=== PATIENT | female | born 1955 | race Caucasian/White ===

== ENCOUNTER 2023-03-23 13:29 | Emergency (ER) | payer OTHER ==
--- OUTSIDE RECORDS SUMMARY | 2023-03-23 14:03 | XMS REPORT | Continuity of Care Document ---
:1955 Author Organization [facility] t Address [address] [place] [address]. [address] [place] [address] Care Team Providers Name Role Phone Cinthya Mcneal Attending Clinician Unavailable Thad Morejon Admitting Clinician Unavailable Payers Payer Name Policy Type Policy Number Effective Date Expiration Date S ource Problems This patient has no known problems. Allergies, Adverse Reactions, Alerts Allergy Allergy Status Severity Reaction(s) Onset Inactive Treating Comm ents Source Name Type Date Date Clinician aspirin DA Active SV SWELLING 2020-10 [facility] 12-03 [place] 00:00: d 00 [facility] ibuprofe DA Active SV SWELLING 2020-10 [facility] n 12-03 [place] 00:00: d 00 [facility] Medications This patient has no known medications. Procedures This patient has no known procedures. Encounters Start End Encounter Admission Attending Care Care Encounter Source Date/Time Date/Time Type Type Clinicians Facility Department ID 2021-10-06 2021-10-06 Inpatient SIDDHARTHA Mcneal [facility] DAYS [id number] [facility] 06:36:00 06:36:00 Cinthya Hall [facility] Results Test Description Test Time Test Comments Results Result Comments Source COVID 19 INHOUSE AG 2021-10-02 12:51:00 Test Item Value Reference Range Interpretation Comme nts COVID 19 INHOUSE AG (test code = NEGATIVE Negative Per metal tank builder, negative [id number]) results should be treated aspresumptive a nd, if inconsistent wi th clinical signs andsymptoms or necessary for patient managem ent, should betested with a n alternative molecular assay . Negative resultsdo not p reclude SARS-CoV-2 infection and s hould not be usedas the sole basis for patient management deci sions. Negative results should be considered in the context of apatient's recent exposures, hist ory, presence of clinicalsigns a nd symptoms consistent with COVID-19. BASIC METABOLIC [id number] 12:27:00 Test Item Value Reference Range Interpretation Comments SODIUM (test code = NA) 138 mmol/L 134-147 N POTASSIUM (test code = 4.0 mmol/L 3.4-5.0 N K) CHLORIDE (test code = 108 mmol/L 100-108 N CL) CARBON DIOXIDE (test 24 mmol/L 21-32 N code = CO2) ANION GAP (test code = 6.0 GAP calc 4.0-15.0 N GAP) GLUCOSE (test code = 91 MG/DL 70-110 N GLU) BLOOD UREA NITROGEN 15 MG/DL 7-18 N (test code = BUN) GLOMERULAR FILTRATION >=60 max estimate >60 RATE (test code = GFR) estGFR CREATININE (test code = 0.9 MG/DL 0.6-1.0 N CREAT) CALCIUM (test code = CA) 9.1 MG/DL 8.5-10.1 N CBC W/AUTO [id number] 12:17:00 Test Item Value Reference Range Interpretation Comments WHITE BLOOD CELL (test code = 4.6 K/mm3 3.5-11.0 N WBC) RED BLOOD CELL (test code = 4.89 M/mm3 4.70-6.10 N RBC) HEMOGLOBIN (test code = HGB) 13.8 G/DL 10.4-14.9 N HEMATOCRIT (test code = HCT) 43.0 % 31.5-44.1 N MEAN CELL VOLUME (test code = 87.9 Fl 84.5-98.6 N MCV) MEAN CELL HGB (test code = MCH) 28.2 pg 27.0-34.2 N MEAN CELL HGB CONCETRATION 32.1 G/DL 31.5-34.0 N (test code = MCHC) RED CELL DISTRIBUTION WIDTH 13.3 SD 11.5-14.5 N (test code = RDW) PLATELET COUNT (test code = 210 K/mm3 150-450 N PLT) MEAN PLATELET VOLUME (test code 10.30 fL 7.0-10.5 N = MPV) NEUTROPHIL % (test code = NT%) 61.8 % 40-76 N IMMATURE GRANULOCYTE % (test 0.4 % 0.0-5.0 N code = IG%) LYMPHOCYTE % (test code = LY%) 19.8 % 20.5-51.1 L MONOCYTE % (test code = MO%) 14.2 % 1.7-9.3 H EOSINOPHIL % (test code = EO%) 3.4 % 0.0-6.0 N BASOPHIL % (test code = BA%) 0.4 % 0.0-2.0 N NUCLEATED RBC % (test code = 0.0 /100WBC% 0.0-1.0 N NRBC%) NEUTROPHIL # (test code = NT#) 2.9 K/mm3 1.8-7.6 N IMMATURE GRANULOCYTE # (test 0.02 x10 3/uL 0.00-0.03 N code = IG#) LYMPHOCYTE # (test code = LY#) 0.9 K/mm3 0.6-3.2 N MONOCYTE # (test code = MO#) 0.7 K/mm3 0.3-1.1 N EOSINOPHIL # (test code = EO#) 0.2 K/mm3 0.0-0.4 N BASOPHIL # (test code = BA#) 0.0 K/mm3 0.0-0.1 N NUCLEATED RBC # (test code = 0.0 K/mm3 0.0-0.1 N NRBC#) MANUAL DIFF REQUIRED (test code NO DIFF/SCN CRITERIA = MDIFF) - XR CHEST 2 [id number] 12:12:00 [facility] 1955 Sex: F Name: DAKOTAH JARRELL [facility] : 1955 Age/S: 66 / F [facility] Unit #: [id number] Loc:[place] [address] Phys: Cinthya Mcneal MD Acct: [id number] Dis Date: Status: PRE SDC PHONE #: [phone] Exam Date: 10/02/2021 1150 FAX #: Reason: PREOP EXAMS: CPT: [id number] XR CHEST 2 V 32834 Fluoro Time: DAP (Gy m2): Air Kerma (mGy): EXAMINATION: Frontal and lateral chest radiographs INDICATION: PREOP, J34.2 COMPARISON: None LOCATION: S17 FINDINGS: Clear lungs. No pleural effusion or pneumothorax. Cardiac silhouette is normal in size. IMPRESSION: No acute abnormality identified. El ectronically Signed by Tabitha Thompson on 10/02/2021 at 1212 Reported and signed by: Tho Thompson M.D. CC: Thad BROOKS; Cinthya Mcneal MD PAGE 1 Signed Report Name: DAKOTAH PAYNE [facility] : 1955 Age/S: 66 / F [id number] [facility] Unit #: [id number] Loc: [place] [address] Phys: Cinthya Mcneal MD Acct: [id number] Dis Date: Status: PRE [facility] PHONE #: [phone] Exam Date: 10/02/2021 1150 FAX #: Reason: PREOP EXAMS: CPT: [id number] XR CHEST 2 V 03156 Fluoro Time: DAP (Gy m2): Air Kerma (mGy): <Continued> Technologist: Payton Mijares RT(R)(MR) Trnscb Date/Time: 10/02/2021 (1212) [place] Orig Print D/T: S: 10/02/2021 (1215) PAGE 2 Signed Report Notes Date/Time Note Provider Source 2021-10-06 10:46:00-00:00 [facility] ([facility] Full Op Note REPORT#:[id number] REPORT STATUS: Signed DATE:10/06/21 TIME:104 PATIENT: DAKOTAH PAYNE UNIT #: [id number] ROOM/BED: : 55 AGE: 66 SEX: F ATTEND: Tyler Mcnael MD ADM AUTHOR: Cinthya Mcneal MD * ALL edits or amendments must be made on the el [employer]/computer document * Operative Report Start date: 10/06/21 Start time: 909 Pre-procedure diagnosis: septal deviation, nasal obstruction Post-procedure diagnosis: same Procedures performed: Septoplasty Technique/Procedure: The patient was brought to the operating room an d placed under general anesthesia via endotracheal tube. The head of be d was turned 90 degrees. The nasal hairs were trimmed with scissors and the s petum injected with local anesthetic. The nasa cavity was packed to Afrin soaked plegets. The head was draped in a standard fashion for nasal surgery. After removal of the plegets , the nasal cavity was inspected with headlight and nasal speculum revealing severe left cartilagino us and bony septal deviation with in ability to view the left middle turbinat e. The inferior turbinates appeared enlarged despite topical decongestant. A right hemitransfixion incision was made with a 15 blade scapel and a Sarita elevator was used to elevate the bilateral mucosa flaps, isolating the cartilage and bone. Leaving a 1.5cm ca udal and cranial L strut, the cartilage was incised with a Gem and 1.5cm frag ment of cartilage with addital 1cm of attached bone was removed. The rongeur was used to refine the septum near the posterior, superior aspect and along the maxillary crest. A rasp was used to smooth the bone along the left maxillary crest. This result ed in significant improvement of the septal deviation. Afr in soak plegets were applied for several minutes to aid in hemostasis. The previously removed cartil age was inspected and bony fragments were removed. The cartilage was judici ously shaved and re-shaped to the flat, thin disc of about 1.5cm diameter and 2mm thickness. The plegets were removal and counts confirmed correct. The cartil age was then replaced between the mucosal flaps. The hemit ransfixion incision was closed in a running fashion using plain gut suture on a P3 needle. A second suture was manipulated to straighten the P3 to mimic a mansoor needle and th en used to approximate the septal flaps in a quilting like suture. A freer was used to medialize the middle turbinates bilaterally to help open airfl ow through the nose. Surgical plan for turbinate reduction and nasal valve remodeling was aborted due to equipment malfunction. No Villela splints or na jocelyne packing was felt neccessary.The nasopharynx was suctioned and the patient returned to care of anesthesia for awakening and extubation in the perating room which proceeded without difficulty. Primary Surgeon: Cinthya Mcneal Co-surgeon: none Type Copy Examiner(s): none Anesthesia: general anesthesia Operative findings: severe cartilage and bone left septal deviation Complications: none Estimated blood loss in ml's: 10ml Specimens removed/altered: septal bone/cartilage , no pathology Implant(s): none at [address] [facility] [[email or web address]] #: [id number] END OF REPORT 2021-10-02 11:47:00-00:00 [id number] [address] PATIENT NAME: DAKOTAH PAYNE ADMIT DATE: 10/06/21 ACCOUNT NO: [id number] ROOM NO: AGE: 66 REPORT TYPE: eELECTROCARDIOGRAM SEX: F ADMITTING PHYSICIAN: ATTENDING PHYSICIAN: Cinthya Mcneal MD Order: [id number] Test Reason : PREOP Test Date/Time Stamp: WedOct 02 2021 11:47:09 Blood Pressure : / mmHG Vent. Rate : 072 BPM Atrial Rate : 072 BPM P-R Int : 168 ms QRS Dur : 138 ms QT Int : 434 ms P-R-T Axes : 054 -69 051 degree s QTc Int : 475 ms Sinus rhythm with occasional premature ventricul ar complexes Right bundle branch block Left anterior fascicular block Bifascicular block Confirmed by MD Javier, Amir ([id number]) on 2:50:09 PM Referred By: Cinthya Mcneal Confirmed by:Jennifer Herrera MD at 1450 PATIENT NAME: DAKOTAH PAYNE 271
[2023-03-23 14:21] LABS: Absolute Lymphocytes (CBC) 0.8 K/uL (0.7-4.9); Hematocrit 40.2 % (36.0-45.0); Lymphocytes % 11.1 % (15.3-44.8); MCV 85.2 fL (80-100); RBC Red Blood Cell Count 4.72 M/uL (3.86-4.86)
[2023-03-23 14:25] LABS: Protime INR 1.09
[2023-03-23 14:44] LABS: Albumin 3.5 g/dL (3.4-5.0); Bilirubin Direct 0.1 mg/dL (0-0.2); Bilirubin Indirect, Calculated 0.4 mg/dL (0.2-0.8); Bilirubin Total 0.5 mg/dL (0.2-1.0); Potassium 4.1 mEq/L (3.5-5.1); Protein, Total 7.6 g/dL (6.4-8.2); Troponin High Sensitivity 8.3 pg/mL (<58.9)
--- NOTE | 2023-03-23 14:58 | RAD REPORT ---
EXAM DESCRIPTION: RAD - Chest Single View - 03/23/2023 2:52 pm CLINICAL HISTORY: CHEST PAIN Chest pain. COMPARISON: Chest Pa And Lat (2 Views) dated 11/27/2021; Chest Pa And Lat (2 Views) dated 01/04/2020; Chest Pa And Lat (2 Views) dated 06/02/2019; Chest Pa And Lat (2 Views) dated 10/17/2017 FINDINGS: Portable technique limits examination quality. [id number] bilateral interstitial lung opacities. The heart is moderately enlarged. No displace d fractures. IMPRESSION: Mild CHF.
--- NOTE | 2023-03-23 15:36 | RAD REPORT ---
EXAM DESCRIPTION: CT - Chest For Pe Angio - 03/23/2023 3:25 pm CLINICAL HISTORY: Chest pain. CHEST PAIN COMPARISON: Thorax Wo Con dated 06/05/2022 TECHNIQUE: CT angiogram of the pulmonary arteries was performed with MIP. All CT scans are performed using dose optimization technique as appropriate and may include automated exposure control or mA/KV adjustment according to patient size. FINDINGS: No evidence of pulmonary thromboembolism. No acute aortic finding demonstrated. Prominent diffuse emphysema. No significant pericardial or pleural fluid. No concerning bony finding. IMPRESSION: No evidence of pulmonary thromboembolism. Prominent diffuse COPD.
--- NOTE | 2023-03-23 16:07 | ER ---
Nurse's Notes [facility] Name: Ivet May Age: 67 yrs Sex: Female : 1955 Arrival Date: 03/23/2023 Time: 13:29 Bed 12 Private MD: Diagnosis: Chest pain, unspecified;COPD/ Chronic obstructive pulmonary disease, unspecified Presentation: 03/23 13:36 Chief complaint: Patient states: chest pain radiating around to back that began this aa5 morning. Pt reports baseline cough and baseline SOB. Coronavirus screen: At this time, the client does not indicate any symptoms associated with coronavirus-19. Ebola Screen: Patient denies travel to an Ebola-affected area in the 21 days before illness onset. Initial Sepsis Screen: Does the patient meet any 2 criteria? No. Patient's initial sepsis screen is negative. Does the patient have a suspected source of infection? No. Patient's initial sepsis screen is negative. Risk Assessment: Do you want to hurt yourself or someone else? Patient reports no desire to harm self or others. Onset of symptoms was March 23, 2023. 13:36 Acuity: PETE 3 aa5 13:36 Method Of Arrival: Ambulatory aa5 Historical: - Allergies: 13:37 Aspirin; aa5 13:37 Ibuprofen; aa5 - PMHx: 13:37 COPD; Hypertension; aa5 - Immunization history:: Adult Immunizations unknown. - Social history:: Smoking status: Reported history of juuling and/or vaping. - Family history:: not pertinent. - Hospitalizations: : No recent hospitalization is reported. Screenin:[facility] ED Fall Risk Assessment (Adult) History of falling in the last 3 months, mb9 including since admission No falls in past 3 months (0 pts) Confusion or Disorientation No (0 pts) Intoxicated or Sedated No (0 pts) Impaired Gait No (0 pts) Mobility Assist Device Used No (0 pt) Altered Elimination No (0 pt) Score/Fall Risk Level 0 - 2 = Low Risk Oriented to surroundings, Maintained a safe environment, Educated pt \T\ family on fall prevention, incl call for assistance when getting out of bed. Abuse screen: Denies threats or abuse. Nutritional screening: No deficits noted. Tuberculosis screening: No symptoms or risk factors identified. Assessment: 14:19 General: Appears in no apparent distress. Behavior is calm, cooperative. Pain: mb9 Complains of pain in chest Pain radiates to back Pain currently is 5 out of 10 on a pain scale. Quality of pain is described as throbbing, Pain began suddenly, Is intermittent. Neuro: Braxton Agitation-Sedation Scale (RASS): 0 - Alert and Calm Level of Consciousness is awake, alert, obeys commands, Oriented to person, place, time, situation, Appropriate for age. Cardiovascular: Reports chest pain, shortness of breath, Heart tones S1 S2 present Patient's skin is warm and dry. Respiratory: Reports shortness of breath at rest on exertion Airway is patent Respiratory effort is even, unlabored, Respiratory pattern is regular, symmetrical, Breath sounds are clear bilaterally. GI: Abdomen is round non-distended, Bowel sounds present X 4 quads. Abd is soft and non tender X 4 quads. Patient currently denies nausea. GI:. : No signs and/or symptoms were reported regarding the genitourinary system. Derm: Skin is pink, warm \T\ dry. Musculoskeletal: Range of motion: intact in all extremities. 16:22 Reassessment: Patient and/or family updated on plan of care and expected duration. Pain mb9 level reassessed. Patient is alert, oriented x 3, equal unlabored respirations, skin warm/dry/pink. Patient states feeling better. Patient states symptoms have improved. Vital Signs: 13:36 BP 176 / 97; Pulse 83; Resp 16 S; Temp 98(TE); Pulse Ox 97% on R/A; Weight 96.62 kg aa5 (R); Height 5 ft. 7 in. (R); 14:20 BP 131 / 100; Pulse 74; Resp 14; Pulse Ox 94% on R/A; mb9 16:22 BP 132 / 89; Pulse 78; Resp 18; Pulse Ox 99% ; mb9 13:36 Body Mass Index 33.36 (96.62 kg, 170.18 cm) aa5 ED Course: 13:32 Patient arrived in ED. rg4 13:36 Arm band placed on. aa5 13:37 Kristian Caro MD is Attending Physician. rn 13:37 Triage completed. aa5 13:46 Radiology exam delayed due to lab results not completed at this time. (BUN/Creatinine) jg10 IV insertion attempt and/or patient not having appropriate IV at this time. 13:54 Kimberly Ferguson, RN is Primary Nurse. mb9 14:11 Initial lab(s) drawn, by me, sent to lab. Inserted saline lock: 22 gauge in left tm3 antecubital area, using aseptic technique. 14:18 Basic Metabolic Panel Sent. mb9 14:18 CBC with Diff Sent. mb9 14:18 LFT's Sent. mb9 14:18 NT PRO-BNP Sent. mb9 14:18 PT-INR Sent. mb9 14:18 Troponin HS Sent. mb9 14:19 Lipase Sent. mb9 14:20 Placed in gown. Bed in low position. Call light in reach. Side rails up X 1. Client mb9 placed on continuous cardiac and pulse oximetry monitoring. NIBP monitoring applied. library monitor on. Door closed. Noise minimized. Warm blanket given. 14:20 No provider procedures requiring assistance completed. Patient maintains SpO2 mb9 saturation greater than 95% on room air. 14:53 XRAY Chest (1 view) In Process Unspecified. EDMS 15:27 CT Chest For PE Angio In Process Unspecified. EDMS 15:28 Inserted saline lock: 20 gauge in right antecubital area, using aseptic technique. mb9 16:06 Jesús Lantigua MD is Referral Physician. rn 16:22 IV discontinued, intact, bleeding controlled, No redness/swelling at site. Pressure mb9 dressing applied. Administered Medications: 16:12 Drug: predniSONE PO 60 mg Route: PO; mb9 Medication: 14:21 VIS not applicable for this client. mb9 Outcome: 16:07 Discharge ordered by . rn 16:22 Discharged to home ambulatory. mb9 16:22 Condition: stable 16:22 Discharge instructions given to patient, Instructed on discharge instructions, follow up and referral plans. Demonstrated understanding of instructions, follow-up care, medications, Prescriptions given X 1. 16:23 Patient left the ED. mb9 Signatures: Dispatcher [employer] EDMS Christiano Ryan3 Kristian Caro MD MD rn Calderon, Audri, RN RN salvador5 Micki Mon4 Isabel Pappas jg10 Kimberly Ferguson, RN RN mb9
--- NOTE | 2023-03-23 16:07 | EDPHYS ---
Physician Documentation [facility] Name: Ivet May Age: 67 yrs Sex: Female : 1955 Arrival Date: 03/23/2023 Time: 13:29 Bed 12 Private MD: ED Physician Kristian Caro HPI: 03/23 14:21 This 67 yrs old Female presents to ER via Ambulatory with complaints of Chest Pain. rn 14:21 The patient or guardian reports chest pain that is located primarily in the substernal rn area. Onset: this morning. The pain radiates to back. Associated signs and symptoms: Pertinent positives: cough, lower extremity swelling, Pertinent negatives: abdominal pain, near syncope, syncope, vomiting. The chest pain is described as sharp. Duration: The patient or guardian reports multiple episodes, that are intermittent. Modifying factors: The symptoms are alleviated by nothing. the symptoms are aggravated by deep breath. Severity of pain: At its worst the pain was moderate in the emergency department the pain is unchanged. The patient has not experienced similar symptoms in the past. The patient has not recently seen a physician. Historical: - Allergies: 13:37 Aspirin; aa5 13:37 Ibuprofen; aa5 - PMHx: 13:37 COPD; Hypertension; aa5 - Immunization history:: Adult Immunizations unknown. - Social history:: Smoking status: Reported history of juuling and/or vaping. - Family history:: not pertinent. - Hospitalizations: : No recent hospitalization is reported. ROS: 14:21 Constitutional: Negative for fever, chills, and weight loss, Eyes: Negative for injury, rn pain, redness, and discharge, Neck: Negative for injury, pain, and swelling, Cardiovascular: +chest pain Respiratory: + cough, neg for sob Abdomen/GI: Negative for abdominal pain, nausea, vomiting, diarrhea, and constipation, Back: Negative for injury MS/Extremity: Negative for injury and deformity, Skin: Negative for injury, rash, and discoloration, Neuro: Negative for headache, weakness, numbness, tingling, and seizure. Exam: 14:21 Constitutional: This is a well developed, well nourished patient who is awake, alert rn Head/Face: Normocephalic, atraumatic. Cardiovascular: Regular rate, irregular rhythm. No pulse deficits. Respiratory: No increased work of breathing, no retractions or nasal flaring. Abdomen/GI: Soft, non-tender Skin: Warm, dry MS/ Extremity: Pulses equal, no cyanosis. Neuro: Awake and alert, GCS 15 14:54 ECG was reviewed by the Attending Physician. rn Vital Signs: 13:36 BP 176 / 97; Pulse 83; Resp 16 S; Temp 98(TE); Pulse Ox 97% on R/A; Weight 96.62 kg aa5 (R); Height 5 ft. 7 in. (R); 14:20 BP 131 / 100; Pulse 74; Resp 14; Pulse Ox 94% on R/A; mb9 16:22 BP 132 / 89; Pulse 78; Resp 18; Pulse Ox 99% ; mb9 13:36 Body Mass Index 33.36 (96.62 kg, 170.18 cm) aa5 MDM: 13:37 Patient medically screened. rn 16:04 Differential diagnosis: acute myocardial infarction, acute pericarditis, anxiety, chest rn wall pain, costochondritis, esophagitis, gastroesophageal reflux disease (GERD), peptic ulcer disease, pleurisy, pneumonia, pneumothorax, pulmonary embolus, stable angina, thoracic aortic disection. Data reviewed: vital signs, nurses notes, lab test result(s), EKG, radiologic studies, CT scan, plain films, and as a result, I will discharge patient. Counseling: I had a detailed discussion with the patient and/or guardian regarding: the historical points, exam findings, and any diagnostic results supporting the discharge/admit diagnosis, lab results, radiology results, the need for outpatient follow up, to return to the emergency department if symptoms worsen or persist or if there are any questions or concerns that arise at home. Response to treatment: the patient's symptoms have mildly improved after treatment, and as a result, I will discharge patient. Special discussion: I discussed with the patient/guardian in detail that at this point there is no indication for admission to the hospital. It is understood, however, that if the symptoms persist or worsen the patient needs to return immediately for re-evaluation. Based on the history and exam findings, there is no indication for further emergent testing or inpatient evaluation. I discussed with the patient/guardian the need to see the primary care provider for further evaluation of the symptoms. I discussed with the patient/guardian the need to see the veterans services specialist for further evaluation of the symptoms. ED course: CT PE neg for acute findings, labs unremarkable, trop neg, imaging consistent with moderate to severe emphysema/COPD, sees Dr. Lantigua, recommended cessation of vaping/smoking, and will dc home with pcp and pulm f/u with return precautions.. 03/23 13:41 Order name: Basic Metabolic Panel; Complete Time: 14:47 rn 03/23 13:41 Order name: CBC with Diff; Complete Time: 14:47 rn 03/23 13:41 Order name: LFT's; Complete Time: 14:47 rn 03/23 13:41 Order name: NT PRO-BNP; Complete Time: 14:47 rn 03/23 13:41 Order name: PT-INR; Complete Time: 14:47 rn 03/23 13:41 Order name: Troponin HS; Complete Time: 14:47 rn 03/23 13:41 Order name: Lipase; Complete Time: 14:47 rn 03/23 13:41 Order name: XRAY Chest (1 view); Complete Time: 15:43 rn 03/23 13:42 Order name: CT Chest For PE Angio; Complete Time: 15:43 rn 03/23 13:41 Order name: EKG; Complete Time: 13:41 rn 03/23 13:41 Order name: Cardiac monitoring; Complete Time: 13:54 rn 03/23 13:41 Order name: EKG - Nurse/Tech; Complete Time: 13:47 rn 03/23 13:41 Order name: IV Saline Lock; Complete Time: 14:18 rn 03/23 13:41 Order name: Labs collected and sent; Complete Time: 14:18 rn 03/23 13:41 Order name: O2 Per Protocol; Complete Time: 13:54 rn 03/23 13:41 Order name: O2 Sat Monitoring; Complete Time: 13:54 rn EC:54 Rate is 87 beats/min. Rhythm is regular. Left axis deviation noted. QRS is positive in rn lead I and negative in lead aVF. NV interval is normal. QRS interval is prolonged at 136 msec. QT interval is normal. No Q waves. T waves are Normal. No ST changes noted. Clinical impression: NSR w/ Non-specific ST/T Changes. Interpreted by me. Reviewed by me. Administered Medications: 16:12 Drug: predniSONE PO 60 mg Route: PO; mb9 Disposition Summary: 03/23/23 16:07 Discharge Ordered Location: Home rn Problem: new rn Symptoms: have improved rn Condition: Stable rn Diagnosis - Chest pain, unspecified rn - COPD/ Chronic obstructive pulmonary disease, unspecified rn Followup: rn - With: Jesús Lantigua MD - When: As needed - Reason: Recheck today's complaints, Re-evaluation by your physician Discharge Instructions: - Discharge Summary Sheet rn - Nonspecific Chest Pain, Adult rn - Steps to Quit Smoking rn Forms: - Medication Reconciliation Form rn - Thank You Letter rn - Antibiotic rn quality - Prescription Opioid Use rn Prescriptions: - Prednisone 20 mg Oral Tablet - take 3 tablets by ORAL route once daily for 5 days; 15 tablet; Refills: 0, rn Product Selection Permitted Signatures: Dispatcher [employer] Kristian Pollack MD MD rn Calderon, Audri RN RN aa5 Kimberly Ferguson, RN RN mb9
[2023-03-23] MEDS ORDERED: predniSONE 20 MG TAB ONE (16:19)
[2023-03-23 16:52] VITALS: TEMP 98
[2023-03-23 16:54] VITALS: BP 132/89; O2SAT 99
--- NOTE | 2023-03-24 07:16 | EKG ---
Test Date: 2023-03-23 Test Time: 13:48:36 Crm Developer: ROBYN MEASUREMENT RESULTS: Intervals: Rate: 87 NJ: 156 QRSD: 136 QT: 420 QTc: 505 [place]: P: 53 NJ: 156 QRS: -69 T: 38 INTERPRETIVE STATEMENTS: Sinus rhythm with occasional premature ventricular complexes Right bundle branch block Left anterior fascicular block Bifascicular block Abnormal ECG Compared to ECG 10/17/2017 16:37:59 Ventricular premature complex(es) now present Left anterior fascicular block now present Bifascicular block now present Electronically Signed On 03-24-23 07:14:05 CDT by Dmitriy Thrasher
== END 2023-03-23 16:23 | disposition home or self-care (01) ==
LOC: ER 13:29
DX: J44.9 Chronic obstructive pulmonary disease, unspecified (principal); I10 Essential (primary) hypertension; Z88.6 Allergy status to analgesic agent
CPT/HCPCS: 93005; 85025; 80048; 36415; 85610; 80076; 84484; 83690; 83880; 71275; 71045; 99285; Q9967; J7512

== ENCOUNTER 2023-09-27 18:23 | Emergency (ER) | payer OTHER ==
--- OUTSIDE RECORDS SUMMARY | 2023-09-27 18:27 | XMS REPORT | Continuity of Care Document ---
Author Name Unknown Address [address] [facility] [address] [place] [address] [facility] thconnect Address [address] [address] [place] [address] Care Team Providers Care Blind Escort Name Role Phone [email or web address]_Kamirellayala_S Attending Clinician Cinthya Waggoner Attending Clinician Unavail able MELISSA_GCBZW_Kamirellayala_S Admitting Clinician Thad Young Admitting Clinician Unavailable Payers Payer Name Policy Type Policy Number Effective Date Expirati on Date Source Allergies, Adverse Reactions, Alerts Allergy Name Allergy Type Status Severity Reaction(s) Onset Date Inactive Date Treating Clinician Comments Source aspirin DA Active SV SWELLING 2020-10 00:00: 00 [facility] ibuprofe n DA Active SV SWELLING 2020-10 00:00: 00 [facility] Encounters Start Date/Time End Date/Time Encounter Type Admission Type Attending Clinicians Care Facility Care Department Encounter ID Source 2023-08-15 00:00:00 2023-08-15 00:00:00 Outpatient GC_GCBZW_Ka diyala_S PRIV PRIV [id number] [facility] 2021-10-06 06:36:00 2021-10-06 06:36:00 Inpatient Cinthya Arteaga [facility] [id number] [facility] Results Test Description Test Time Test Comments Results Result Co mments Source BASIC METABOLIC [id number] 12:27:00* Test Item Value Reference Range Interpretation Comme nts SODIUM (test code = NA) 138 mmol/L 134-147 N POTASSIUM (test code = K) 4.0 mmol/L 3.4-5.0 N CHLORIDE (test code = CL) 108 mmol/L 100-108 N CARBON DIOXIDE (test code = CO2) 24 mmol/L 21-32 N ANION GAP (test code = GAP) 6.0 GAP calc 4.0-15.0 N GLUCOSE (test code = GLU) 91 MG/DL 70-110 N BLOOD UREA NITROGEN (test code = BUN) 15 MG/DL 7-18 N GLOMERULAR FILTRATION RATE (test code = GFR) >=60 max estimate estGFR >60 CREATININE (test code = CREAT) 0.9 MG/DL 0.6-1.0 N CALCIUM (test code = CA) 9.1 MG/DL 8.5-10.1 N CBC W/AUTO [id number] 12:17:00* Test Item Value Reference Range Interpretation Comme nts WHITE BLOOD CELL (test code = WBC) 4.6 K/mm3 3.5-11.0 N RED BLOOD CELL (test code = RBC) 4.89 M/mm3 4.70-6.10 N HEMOGLOBIN (test code = HGB) 13.8 G/DL 10.4-14.9 N HEMATOCRIT (test code = HCT) 43.0 % 31.5-44.1 N MEAN CELL VOLUME (test code = MCV) 87.9 Fl 84.5-98.6 N MEAN CELL HGB (test code = MCH) 28.2 pg 27.0-34.2 N MEAN CELL HGB CONCETRATION (test code = MCHC) 32.1 G/DL 31.5-34.0 N RED CELL DISTRIBUTION WIDTH (test code = RDW) 13.3 SD 11.5-14.5 N PLATELET COUNT (test code = PLT) 210 K/mm3 150-450 N MEAN PLATELET VOLUME (test c ode = MPV) 10.30 fL 7.0-10.5 N NEUTROPHIL % (test code = NT%) 61.8 % 40-76 N IMMATURE GRANULOCYTE % (test code = IG%) 0.4 % 0.0-5.0 N LYMPHOCYTE % (test code = LY%) 19.8 % 20.5-51.1 L MONOCYTE % (test code = MO%) 14.2 % 1.7-9.3 H EOSINOPHIL % (test code = EO%) 3.4 % 0.0-6.0 N BASOPHIL % (test code = BA%) 0.4 % 0.0-2.0 N NUCLEATED RBC % (test code = NRBC%) 0.0 /100WBC% 0.0-1.0 N NEUTROPHIL # (test code = NT#) 2.9 K/mm3 1.8-7.6 N IMMATURE GRANULOCYTE # (test code = IG#) 0.02 x10 3/uL 0.00-0.03 N LYMPHOCYTE # (test code = LY#) 0.9 K/mm3 0.6-3.2 N MONOCYTE # (test code = MO#) 0.7 K/mm3 0.3-1.1 N EOSINOPHIL # (test code = EO#) 0.2 K/mm3 0.0-0.4 N BASOPHIL # (test code = BA#) 0.0 K/mm3 0.0-0.1 N NUCLEATED RBC # (test code = NRBC#) 0.0 K/mm3 0.0-0.1 N MANUAL DIFF REQUIRED (test c ode = MDIFF) NO DIFF/SCN CRITERIA - XR CHEST 2 [id number] 12:12:00 [facility] 1955 Sex: F Name: DAKOTAH PAYNE [facility] : 1955 Age/S: 66 / F [id number] Unit #: [id number] Loc: [place] [address] Phys: Cinthya Mcneal MD Acct: [id number] Dis Date: Status: PRE SDC PHONE #: [phone] Exam Date: 10/02/2021 1150 FAX #: Reason: PREOP EXAMS: CPT: [id number] XR CHEST 2 V 46888 Fluoro Time: DAP (Gy m2): Air Kerma (mGy): EXAMINATION: Frontal and lateral chest radiographs INDICATION: PREOP, J34.2 COMPARISON: None LOCATION: S17 FINDINGS: Clear lungs. No pleural effusion or pneumothorax. Cardiac silhouette is normal in size. IMPRESSION: No acute abnormality identified. at 1212 Reported and signedby: Tho Thompson M.D. CC: Thad BROOKS; Cinthya Mcneal MD PAGE 1 Signed Report Name: DAKOTAH PAYNE [facility] : 1955 Age/S: 66 / F [id number] Unit #: [id number] Loc: [place] [address] Phys: Cinthya Mcneal MD Acct: [id number] Dis Date: Status: PRE SDC PHONE #: [phone] Exam Date: 10/02/2021 1150 FAX #: Reason: PREOP EXAMS: CPT: [id number] XR CHEST 2 V 88472 Fluoro Time: DAP (Gy m2): Air Kerma (mGy): <Continued> Technologist: Payton Mijares, RT(R)(MR) Trnscb Date/Time: 10/02/2021 (1212) tKIM Orig Print D/T: S: 10/02/2021 (1215) PAGE 2 Signed Report Notes Date/Time Note Provider Source 2021-10-06 10:46:00 [id number] 20T10:46:00 [facility] Op NoteREPORT#:[id number] REPORT STATUS: SignedDATE:10/06/21 TIME:1046 PATIENT: DAKOTAH PAYNE UNIT #: [id number]#: [id number] ROOM/BED:: 55 AGE: 66 SEX: F ATTEND: Cinthya Mcneal MDADM AUTHOR: Cinthya Mcneal MD * ALL edits or amendments must be made on the electronic/computer document * Operative ReportStart date: 10/06/21art time: 909Pre-procedure diagnosis:septal deviation, nasal obstructionPost-procedure diagnosis:sameProcedures performed:SeptoplastyTechnique/Procedure:The patient was brought to the operating room and placed under general anesthesia via endotracheal tube. The head of bed was turned 90 degrees. The nasal hairs were trimmed with scissors and the spetum injected with local anesthetic. The nasa cavity was packed to Afrin soaked plegets. The head was draped in a standard fashion for nasal surgery.After removal of the plegets, the nasal cavity was inspected with headlight and nasal speculum revealing severe left cartilaginous and bony septal deviation with in ability to view the left middle turbinate. The inferior turbinates appeared enlarged despite topical decongestant. A right hemitransfixion incision was made with a 15 blade scapel and a Sarita elevator was used to elevate the bilateral mucosa flaps, isolating the cartilageand bone. Leaving a 1.5cm caudal and cranial L strut, the cartilage was incisedwith a Sarita and 1.5cm fragment of cartilage with addital 1cm of attached bone was removed. The rongeur was used to refine the septum near the posterior, superior aspect and along the maxillary crest. A rasp was used to smooth the bone along the left maxillary crest. This resulted in significant improvement of the septal deviation. Afrin soak plegets were applied for several minutes toaid in hemostasis. The previously removed cartilage was inspected and bony fragments were removed. The cartilage was judiciously shaved and re-shaped to the flat, thin disc of about 1.5cm diameter and 2mm thickness. The plegets wereremoval and counts confirmed correct. The cartilage was then replaced between the mucosal flaps. The hemitransfixion incision was closed in a running fashion using plain gut suture on a P3 needle. A second suture was manipulated to straighten the P3 to mimic a mansoor needle and then used to approximate the septal flaps in a quilting like suture. A freer was used to medialize the middle turbinates bilaterally to help open airflow through the nose.Surgical plan for turbinate reduction and nasal valve remodeling was aborted dueto equipment malfunction. No Villela splints or nasal packing was felt neccessary.The nasopharynx was suctioned and the patient returned to care of anesthesia for awakening and extubation in the operating room which proceeded without difficulty.Primary Surgeon: Marcellus Mcnealsurgeon:noneAssistant(s): noneAnesthesia: general anesthesiaOperative findings:severe cartilage and bone left septal deviationComplications: noneEstimated blood loss in ml's: 10mlSpecimens removed/altered: septal bone/cartilage, no pathologyImplant(s): none at [address] [facility] #: [id number] OF REPORT OPOperative [id number]:46:00L.[id number] ilable for patient [id number]:07:23 [facility] 2021-10-02 11:47:00 [id number] [facility] [id number] [place] [address] PATIENT NAME: DAKOTAH PAYNE ADMIT DATE: 10/06/21ACCOUNT NO: [id number] ROOM NO: AGE: 66 REPORT TYPE: eELECTROCARDIOGRAM SEX: F ADMITTING PHYSICIAN: ATTENDING PHYSICIAN: Cinthya Mcneal MD Order:[id number] Reason : PREOP Test Date/Time Stamp:WedOct 02 2021 11:47:09Blood Pressure : / mmHGVent. Rate : 072 BPM Atrial Rate : 072 BPM P-R Int : 168 ms QRS Dur : 138 ms QT Int : 434 ms P-R-T Axes : 054 -69 051 degrees QTc Int : 475 ms Sinus rhythm with occasional premature ventricular complexesRight bundle branch blockLeft anterior fascicular block Bifascicular block Confirmed by MD Javier, Amir ([id number]) on 11/03/2021 2:50:09 PM Referred By: Cinthya Mcneal Confirmed by:Jennifer Herrera MD at 1450 PATIENT NAME: DAKOTAH PAYNE .[id number] AVAvailable for patient [id number]:52:08 [facility]
[2023-09-27] MEDS ORDERED: NA CHLORIDE 0.9% 2,000 ML ONE (18:42)
[2023-09-27 18:53] LABS: Absolute Lymphocytes (CBC) 1.8 K/uL (0.7-4.9); Hematocrit 44.7 % (36.0-45.0); MCV 88.4 fL (80-100); Platelets 314 thou/uL (152-406); RBC Red Blood Cell Count 5.06 M/uL (3.86-4.86)
[2023-09-27 19:04] LABS: Protime INR 1.07
[2023-09-27 19:33] LABS: ALT/SGPT 220 U/L (13-56); AST/SGOT 299 U/L (15-37); Albumin 3.5 g/dL (3.4-5.0); Alkaline Phosphatase 167 U/L (45-117); BUN Blood Urea Nitrogen 31 mg/dL (7-18); Bicarbonate 20 mEq/L (21-32); Bilirubin Total 2.2 mg/dL (0.2-1.0); Glomerular Filtration Rate 40 ml/min (=/>90); Glucose Level 154 mg/dL (74-106); Potassium 3.7 mEq/L (3.5-5.1); Protein, Total 8.2 g/dL (6.4-8.2); Sodium Level 138 mEq/L (136-145)
[2023-09-27] MEDS ORDERED: NA CHLORIDE 0.9% 1,000 ML ONE (20:17)
--- NOTE | 2023-09-27 20:30 | RAD REPORT ---
EXAM DESCRIPTION: US - Abdomen Exam Limited - 09/27/2023 8:06 pm CLINICAL HISTORY: Abdominal pain. COMPARISON: June 2023 FINDINGS: Multiple gallstones. Gallbladder wall mildly thickened. Common bile duct 7 millimeters IMPRESSION: Cholelithiasis Mild gallbladder wall thickening consistent with cholecystitis Mild dilatation of the common bile duct
[2023-09-27 20:40] LABS: Lipase > 5000 U/L (13-75)
[2023-09-27] MEDS ORDERED: NA CHLORIDE 0.9% 100 ML ONE (20:40)
[2023-09-27] MEDS ORDERED: PIPERACIL/TAZO 3.375 GM VIAL IV ONE (20:40)
--- NOTE | 2023-09-27 20:42 | RAD REPORT ---
EXAM DESCRIPTION: CT - Abdomen Pelvis W Contrast - 09/27/2023 8:25 pm CLINICAL HISTORY: Abdominal pain COMPARISON: 2021 TECHNIQUE: Computed axial tomography of the abdomen pelvis was obtained. 100 cc Isovue-300 was admin istered intravenously. Oral contrast was not requested which limits evaluation of bowel and appendix All CT scans are performed using dose optimization technique as appropriate and may include automated exposure control or mA/KV adjustment according to patient size. FINDINGS: Multiple gallstones. Gallbladder wall mildly thickened. Mild stranding within the adjacent . Common bile duct mildly dilated. Small hepatic cysts. Spleen, pancreas, adrenals and left kidney unremarkable. Right renal cyst. Hysterectomy. No adnexal mass. No evidence of diverticulitis Cystocele A small hiatal hernia IMPRESSION: Cholelithiasis. Mild gallbladder wall thickening and stranding within the adjacent fat i ndicative of cholecystitis Mild dilatation of the common bile duct. Magnetic resonance cholangiogram may be helpful for further evaluation
--- NOTE | 2023-09-27 20:44 | RAD REPORT ---
EXAM DESCRIPTION: Cm Single View09/27/2023 7:00 pm CLINICAL HISTORY: Chest pain COMPARISON: March 2023 FINDINGS: The lungs appear clear of acute infiltrate. The heart is normal size IMPRESSION: No acute abnormality is displayed
[2023-09-27 20:57] LABS: Blood Morphology Comment NOT SEEN (NOT SEEN); Platelet Estimate ADEQ; White Blood Cell Scan OK (OK)
[2023-09-27] MEDS ORDERED: METOCLOPRAMIDE 10 MG/2mL INJ ONE (21:20)
[2023-09-27] MEDS ORDERED: D5.45NS W/KCL 20MEQ 1,000 ML IV ONE (21:21)
[2023-09-27] MEDS ORDERED: HYDROMORPHONE HCL 1 MG/ML INJ ONE (21:21)
--- NOTE | 2023-09-27 21:22 | EDPHYS ---
Physician Documentation [facility] Name: Ivet May Age: 68 yrs Sex: Female : 1955 Arrival Date: 09/27/2023 Time: 18:23 Bed 7 Private MD: ED Physician Chetan Isabel HPI: 09/27 18:54 This 68 yrs old Female presents to ER via EMS with complaints of Nausea/Vomiting, rn Abdominal Pain. 18:54 The patient presents to the emergency department with nausea, vomiting, abdominal pain. rn Onset: The symptoms/episode began/occurred today. Possible causes: unknown. The symptoms are aggravated by nothing. The symptoms are alleviated by nothing. Severity of symptoms: At their worst the symptoms were moderate in the emergency department the symptoms are unchanged. The patient has not experienced similar symptoms in the past. Patient reports started having stomach issues today, reports vomiting, nonbloody, associated with abdominal pain diffuse. Reports constipation. No blood in stool recently. No fever. No known sick contacts. Reports history of COPD but no new cough. Denies fever at home.. Historical: - Allergies: 18:45 Aspirin; iw 18:45 Ibuprofen; iw - PMHx: 18:45 COPD; Hypertension; iw - Immunization history:: Adult Immunizations up to date. - Family history:: not pertinent. - Social history:: Smoking status: Patient denies any tobacco usage or history of. Patient/guardian denies using alcohol, street drugs, IV drugs. - Hospitalizations: : No recent hospitalization is reported. ROS: 18:54 Constitutional: Negative for fever, chills, and weight loss, Cardiovascular: Negative rn for chest pain, palpitations, and edema, Respiratory: Negative for shortness of breath, cough, wheezing, and pleuritic chest pain, Abdomen/GI: Positive for abdominal pain and nausea MS/Extremity: Negative for injury and deformity, Skin: Negative for injury, rash, and discoloration, Neuro: Positive for generalized weakness Exam: 18:54 Constitutional: This is a well developed, well nourished patient who is awake, alert, rn and in no acute distress. Cardiovascular: Regular rate and rhythm. No pulse deficits. Respiratory: No increased work of breathing, no retractions or nasal flaring. Abdomen/GI: Soft, tenderness mid abdomen and left lower quadrant. No peritoneal signs MS/ Extremity: Pulses equal, no cyanosis. Neuro: Awake and alert, GCS 15 23:11 ECG was reviewed by the Attending Physician. EKG reveals 2007, normal sinus rhythm with sp4 sinus arrhythmia at a rate of 76, right bundle branch block, otherwise normal EKG Vital Signs: 18:40 Weight 97.52 kg (R); iw 18:44 BP 70 / 47; Pulse 69; Resp 16; Pulse Ox 90% on 4 lpm NC; iw 18:55 BP 84 / 60; Pulse 73; Pulse Ox 95% on 4 lpm NC; iw 19:00 BP 95 / 76; Pulse 76; Resp 17 S; Pulse Ox 96% on 2 lpm NC; jw7 19:41 BP 114 / 72; Pulse 80; rn 20:00 BP 116 / 49; Pulse 77; Resp 21 S; Pulse Ox 99% on 2 lpm NC; jw7 21:00 BP 123 / 72; Pulse 84; Resp 18 S; Pulse Ox 94% on 2 lpm NC; jw7 21:40 BP 102 / 65; Pulse 86; Resp 18; Pulse Ox 95% on 2 lpm NC; jw7 22:00 BP 106 / 64; Pulse 85; Resp 21 S; Pulse Ox 94% on 2 lpm NC; jw7 23:00 BP 115 / 72; Pulse 74; Resp 19 S; Pulse Ox 97% on 2 lpm NC; jw7 09/28 00:03 BP 119 / 72; Pulse 73; Resp 21 S; Pulse Ox 96% on 2 lpm NC; jw7 Procedures: 09/27 22:44 Central Line: the site was prepped with in sterile fashion, Chlorhexidine, a triple sp4 lumen catheter was inserted, in the right internal jugular vein, in 1 attempts. placement was verified, by CXR, by blood return, Ultrasound-guided central line, the site was dressed with Tegaderm, using sterile technique, the patient tolerated the procedure, well, Right internal jugular triple-lumen CVL was placed with ultrasound guidance no complications. MDM: 18:25 Patient medically screened. rn 21:05 Differential diagnosis: Nonspecific abd pain, gastritis, cholecystitis, pancreatitis, sp4 appendicitis, diverticulitis, viral gastroenteritis, gastroenteritis. Data reviewed: vital signs, nurses notes, EMS record, lab test result(s), EKG, radiologic studies, CT scan, plain films, ultrasound. Consideration of Admission/Observation Patient was admitted/placed on observation. Escalation of care including admission/observation considered. ED course: EXAM DESCRIPTION: Cm Single View09/27/2023 7:00 pm CLINICAL HISTORY: Chest pain COMPARISON: March 2023 FINDINGS: The lungs appear clear of acute infiltrate. The heart is normal size IMPRESSION: No acute abnormality is displayed. ED course: CT - EXAM DESCRIPTION: US - Abdomen Exam Limited - 09/27/2023 8:06 pm CLINICAL HISTORY: Abdominal pain. COMPARISON: June 2023 FINDINGS: Multiple gallstones. Gallbladder wall mildly thickened. Common bile duct 7 millimeters IMPRESSION: Cholelithiasis Mild gallbladder wall thickening consistent with cholecystitis Mild dilatation of the common bile duct. ED course: CT - FINDINGS: Multiple gallstones. Gallbladder wall mildly thickened. Mild stranding within the adjacent. Common bile duct mildly dilated. Small hepatic cysts. Spleen, pancreas, adrenals and left kidney unremarkable. Right renal cyst. Hysterectomy. No adnexal mass. No evidence of diverticulitis Cystocele A small hiatal hernia IMPRESSION: Cholelithiasis. Mild gallbladder wall thickening and stranding within the adjacent fat indicative of cholecystitis Mild dilatation of the common bile duct. Magnetic resonance cholangiogram may be helpful for further evaluation . 09/27 18:26 Order name: CBC with Diff; Complete Time: 21:29 09/27 18:26 Order name: CMP; Complete Time: 20:46 09/27 18:26 Order name: Lipase; Complete Time: 20:46 09/27 18:26 Order name: Blood Culture Adult (2) 09/27 18:26 Order name: Lactate w/ 2H reflex if indic.; Complete Time: 19:49 18:26 Order name: Protime (+inr); Complete Time: 19:36 09/27 18:26 Order name: Ptt, Activated; Complete Time: 19:36 09/27 20:58 Order name: CBC Smear Scan; Complete Time: 21:29 EDVT 09/27 22:47 Order name: Lactate Sepsis 2 HR Follow-up; Complete Time: 23:10 EDVT 09/27 18:26 Order name: CT Abd/Pelvis - IV Contrast Only; Complete Time: 20:46 09/27 18:26 Order name: US Abdomen Limited; Complete Time: 20:46 09/27 18:26 Order name: Chest Single View XRAY; Complete Time: 20:46 rn 09/27 22:24 Order name: Chest Single View XRAY sp4 09/27 18:26 Order name: EKG; Complete Time: 18:35 rn 09/27 18:26 Order name: IV Saline Lock; Complete Time: 18:47 rn 09/27 18:26 Order name: Labs collected and sent; Complete Time: 18:47 rn 09/27 18:26 Order name: Accucheck; Complete Time: 20:18 rn 09/27 18:26 Order name: Cardiac monitoring; Complete Time: 19:15 rn 09/27 18:26 Order name: EKG - Nurse/Tech; Complete Time: 20:18 rn 09/27 18:26 Order name: IV Saline Lock - Large Bore; Complete Time: 19:15 rn 09/27 18:26 Order name: O2 Per Protocol; Complete Time: 18:47 rn 09/27 18:26 Order name: O2 Sat Monitoring; Complete Time: 18:47 rn 09/27 18:26 Order name: Vital Signs; Complete Time: 18:47 rn 09/27 20:35 Order name: Davila; Complete Time: 20:58 sp4 09/27 21:36 Order name: Central Line Kit; Complete Time: 22:10 sp4 EC:11 Rate is 76 beats/min. Rhythm is regular, Normal Sinus Rhythm. QRS Russell is Normal. SD sp4 interval is normal. QRS interval is prolonged. QT interval is normal. No Q waves. T waves are Normal. No ST changes noted. Clinical impression: No evidence of ischemia. Interpreted by me. Reviewed by me. Administered Medications: 18:36 Discontinued: ns 0.9% 1000 ml IV at 1000 ml once rn 18:34 Drug: NS 0.9% IV 1000 ml IV at 1000 ml once Route: IV; Rate: 1000 ml; Site: right iw antecubital; 18:46 Drug: NS 0.9% IV (30 ml/kg) 30 ml/kg IV at bolus once; Sepsis Protocol Route: IV; Rate: iw bolus; Site: right antecubital; 22:10 Follow up: Response: No adverse reaction; IV Status: Completed infusion; IV Intake: jw7 3000ml 20:39 Drug: Piperacillin-Tazobactam IVPB 3.375 grams IVPB once over 60 mins; (mix in NS 100 jw7 mL) Route: IVPB; Infused Over: 60 mins; Site: left antecubital; 22:11 Follow up: Response: No adverse reaction; IV Status: Completed infusion; IV Intake: jw7 100ml 21:22 Drug: HYDROmorphone IVP 1 mg IVP once Route: IVP; Site: right antecubital; jw7 09/28 00:05 Follow up: Response: No adverse reaction; Marked relief of symptoms 7 09/27 21:22 Drug: metoCLOPramide IVP 10 mg IVP once; over 1 to 2 minutes Route: IVP; Site: right jw7 antecubital; 09/28 00:04 Follow up: Response: No adverse reaction; Marked relief of symptoms 7 09/27 21: Drug: D5-1/2 NS with KCl IV 20 mEq/L 1000 ml IV at 125 ml/hr continuous Route: IV; jw7 Rate: 125 ml/hr; Site: right antecubital; 09/28 00:04 Follow up: Response: No adverse reaction; IV Status: Infusion continued upon transfer; jw7 IV Intake: 375ml 09/27 22:55 Drug: Norepinephrine IV 0.1 mcg/kg/min IV at calculated rate See Administration jw7 Instructions; (Standard concentration 4 mg / 250 mL D5W); Recommended max rate 3 mcg/kg/min; Titrate 0.05 mcg/kg/min as often as every 5 minutes to achieve goal (see titration policy); Goal parameter MAP greater than 65 mmHg. Route: IV; Rate: calculated rate; Site: right jugular; 09/28 00:04 Follow up: Response: No adverse reaction; IV Status: Infusion continued upon transfer; jw7 IV Intake: 130ml Disposition Summary: 09/27/23 21:21 Transfer Ordered Notes: Reason: Higher level of care sp4 Condition: Stable sp4 Problem: new sp4 Symptoms: have improved sp4 Transfer Location: [facility]-System(09/27/23 22:45) sp4 Accepting Physician: [facility] [place] kid buffer(09/28/23 00:05) jw7 Diagnosis - Calculus of gallbladder and bile duct with acute cholecystitis with obstruction sp4 - Ascending cholangitis, acute cholecystitis, biliary duct obstruction, acute sp4 pancreatitis, septic shock Forms: - Medication Reconciliation Form sp4 - SBAR form sp4 Signatures: Dispatcher [employer] Humera Shin RN RN iw Kristian Caro MD MD rn Waits, Jodi, RN RN jw7 Chetan Isabel MD MD sp4 Corrections: (The following items were deleted from the chart) 09/27 22:45 21:21 Critical access hospitalist sp4 sp4 22:45 21:21 [facility] sp4 sp4 09/28 00:05 09/27 22:[address] [facility] white kid buffer sp4 jw7
--- NOTE | 2023-09-27 21:22 | ER ---
Nurse's Notes [facility] Name: Ivet May Age: 68 yrs Sex: Female : 1955 Arrival Date: 09/27/2023 Time: 18:23 Bed 7 Private MD: Diagnosis: Calculus of gallbladder and bile duct with acute cholecystitis with obstruction;Ascending cholangitis, acute cholecystitis, biliary duct obstruction, acute pancreatitis, septic shock Presentation: 09/27 18:30 Acuity: PETE 2 iw 18:45 Chief complaint: Spouse and/or significant other states: n/v, abd pain X 4 days, today iw she fell and couldn't get up off the ground. Coronavirus screen: Client presents with at least one sign or symptom that may indicate coronavirus-19. Ebola Screen: Patient negative for fever greater than or equal to 101.5 degrees Fahrenheit, and additional compatible Ebola Virus Disease symptoms Patient denies exposure to infectious person. Patient denies travel to an Ebola-affected area in the 21 days before illness onset. No symptoms or risks identified at this time. Initial Sepsis Screen: Does the patient meet any 2 criteria? Systolic BP < 90 mmHg. Altered Mental Status. Yes Does the patient have a suspected source of infection? Yes: Acute abdominal pain. Risk Assessment: Do you want to hurt yourself or someone else? Patient reports no desire to harm self or others. Onset of symptoms was September 23, 2023. 18:45 Method Of Arrival: EMS: [facility] iw Historical: - Allergies: 18:45 Aspirin; iw 18:45 Ibuprofen; iw - PMHx: 18:45 COPD; Hypertension; iw - Immunization history:: Adult Immunizations up to date. - Family history:: not pertinent. - Social history:: Smoking status: Patient denies any tobacco usage or history of. Patient/guardian denies using alcohol, street drugs, IV drugs. - Hospitalizations: : No recent hospitalization is reported. Screenin:27 [facility] ED Fall Risk Assessment (Adult) History of falling in the last 3 months, jw7 including since admission No falls in past 3 months (0 pts) Score/Fall Risk Level 0 - 2 = Low Risk Oriented to surroundings, Maintained a safe environment. Abuse screen: Denies threats or abuse. Denies injuries from another. Nutritional screening: No deficits noted. Tuberculosis screening: No symptoms or risk factors identified. Assessment: 19:00 General: Appears in no apparent distress. uncomfortable, Behavior is calm, cooperative. jw7 Pain: Complains of pain in abdomen Pain does not radiate. Pain currently is 6 out of 10 on a pain scale. Quality of pain is described as sharp, throbbing, Is continuous. Neuro: Braxton Agitation-Sedation Scale (RASS): 0 - Alert and Calm Level of Consciousness is awake, alert, obeys commands, Oriented to person, place, time, situation. Cardiovascular: Heart tones S1 S2 present Capillary refill < 3 seconds Clubbing of nail beds is absent JVD is absent Patient's skin is warm and dry. Rhythm is sinus rhythm. Respiratory: Airway is patent Trachea midline Respiratory effort is even, unlabored, Respiratory pattern is regular, symmetrical. GI: Abdomen is round distended, Bowel sounds present X 4 quads. : No deficits noted. No signs and/or symptoms were reported regarding the genitourinary system. EENT: No deficits noted. No signs and/or symptoms were reported regarding the EENT system. Derm: No deficits noted. No signs and/or symptoms reported regarding the dermatologic system. Musculoskeletal: No deficits noted. No signs and/or symptoms reported regarding the musculoskeletal system. 20:00 Reassessment: Patient appears in no apparent distress at this time. No changes from jw7 previously documented assessment. Patient and/or family updated on plan of care and expected duration. Pain level reassessed. Patient is alert, oriented x 3, equal unlabored respirations, skin warm/dry/pink. 21:00 Reassessment: Patient appears in no apparent distress at this time. No changes from jw7 previously documented assessment. Patient and/or family updated on plan of care and expected duration. Pain level reassessed. Patient is alert, oriented x 3, equal unlabored respirations, skin warm/dry/pink. 22:06 Reassessment: Patient appears in no apparent distress at this time. Patient and/or jw7 family updated on plan of care and expected duration. Pain level reassessed. Patient is alert, oriented x 3, equal unlabored respirations, skin warm/dry/pink. Patient denies pain at this time. Patient states feeling better. Patient states symptoms have improved. 23:00 Reassessment: Patient appears in no apparent distress at this time. No changes from jw7 previously documented assessment. Patient is alert, oriented x 3, equal unlabored respirations, skin warm/dry/pink. 09/28 00:02 Reassessment: Patient appears in no apparent distress at this time. No changes from jw7 previously documented assessment. Patient is alert, oriented x 3, equal unlabored respirations, skin warm/dry/pink. Vital Signs: 09/27 18:40 Weight 97.52 kg (R); iw 18:44 BP 70 / 47; Pulse 69; Resp 16; Pulse Ox 90% on 4 lpm NC; iw 18:55 BP 84 / 60; Pulse 73; Pulse Ox 95% on 4 lpm NC; iw 19:00 BP 95 / 76; Pulse 76; Resp 17 S; Pulse Ox 96% on 2 lpm NC; jw7 19:41 BP 114 / 72; Pulse 80; rn 20:00 BP 116 / 49; Pulse 77; Resp 21 S; Pulse Ox 99% on 2 lpm NC; jw7 21:00 BP 123 / 72; Pulse 84; Resp 18 S; Pulse Ox 94% on 2 lpm NC; jw7 21:40 BP 102 / 65; Pulse 86; Resp 18; Pulse Ox 95% on 2 lpm NC; jw7 22:00 BP 106 / 64; Pulse 85; Resp 21 S; Pulse Ox 94% on 2 lpm NC; jw7 23:00 BP 115 / 72; Pulse 74; Resp 19 S; Pulse Ox 97% on 2 lpm NC; jw7 09/28 00:03 BP 119 / 72; Pulse 73; Resp 21 S; Pulse Ox 96% on 2 lpm NC; jw7 ED Course: 09/27 18:25 Patient arrived in ED. sb4 18:25 Kristian Caro MD is Attending Physician. rn 18:30 Inserted saline lock: 22 gauge in right antecubital area, using aseptic technique. rs5 Blood collected. 18:30 Missed attempt(s): 20 gauge in right antecubital area. Bleeding controlled, band aid iw applied, catheter tip intact. 18:40 Inserted saline lock: 20 gauge in left antecubital area, using aseptic technique. Blood rs5 collected. 18:43 Humera Olson, RN is Primary Nurse. iw 18:43 Triage completed. iw 18:46 Arm band placed on. iw 19:00 Client placed on continuous cardiac and pulse oximetry monitoring. NIBP monitoring jw7 applied. 19:02 Chest Single View XRAY In Process Unspecified. EDMS 19:27 Patient has correct armband on for positive identification. Bed in low position. Call jw7 light in reach. 20:00 Warm blanket given. jw7 20:08 US Abdomen Limited In Process Unspecified. EDMS 20:27 Attending Physician role handed off by Kristian Caro MD sp4 20:27 Chetan Isabel MD is Attending Physician. sp4 20:27 CT Abd/Pelvis - IV Contrast Only In Process Unspecified. EDMS 20:50 Davila cath inserted, using sterile technique, 18 Fr., by wv, balloon inflated, to jw7 gravity drainage, urine specimen collected. returned cloudy urine. Patient tolerated well. 20:58 Initiated transfer with Kenyatta at [facility]. rv1 21:50 [facility] declined due to capacity. rv1 22:06 Provided Education on: need for transfer and central line consent. jw7 22:10 Initiated transfer with Jamar at [facility]. rv1 22:28 Assisted provider with central line placement. Set up central line tray. Triple lumen lg3 line placed in right internal jugular. Line placed by Chetan Isabel MD Placement verified by blood return, Patient tolerated well. 22:[address] Anna to [facility] 8A Rm 830. rv1 22:50 Chest Single View XRAY In Process Unspecified. EDMS 12 00:03 Patient transferred, IV remains in place. jw7 Administered Medications: 09/27 18:36 Discontinued: ns 0.9% 1000 ml IV at 1000 ml once rn 18:34 Drug: NS 0.9% IV 1000 ml IV at 1000 ml once Route: IV; Rate: 1000 ml; Site: right iw antecubital; 18:46 Drug: NS 0.9% IV (30 ml/kg) 30 ml/kg IV at bolus once; Sepsis Protocol Route: IV; Rate: iw bolus; Site: right antecubital; 22:10 Follow up: Response: No adverse reaction; IV Status: Completed infusion; IV Intake: jw7 3000ml 20:39 Drug: Piperacillin-Tazobactam IVPB 3.375 grams IVPB once over 60 mins; (mix in NS 100 jw7 mL) Route: IVPB; Infused Over: 60 mins; Site: left antecubital; 22:11 Follow up: Response: No adverse reaction; IV Status: Completed infusion; IV Intake: jw7 100ml 21:22 Drug: HYDROmorphone IVP 1 mg IVP once Route: IVP; Site: right antecubital; jw7 09/28 00:05 Follow up: Response: No adverse reaction; Marked relief of symptoms jw7 09/27 21:22 Drug: metoCLOPramide IVP 10 mg IVP once; over 1 to 2 minutes Route: IVP; Site: right jw7 antecubital; 09/28 00:04 Follow up: Response: No adverse reaction; Marked relief of symptoms jw7 09/27 21:22 Drug: D5-1/2 NS with KCl IV 20 mEq/L 1000 ml IV at 125 ml/hr continuous Route: IV; jw7 Rate: 125 ml/hr; Site: right antecubital; 09/28 00:04 Follow up: Response: No adverse reaction; IV Status: Infusion continued upon transfer; jw7 IV Intake: 375ml 09/27 22:55 Drug: Norepinephrine IV 0.1 mcg/kg/min IV at calculated rate See Administration jw7 Instructions; (Standard concentration 4 mg / 250 mL D5W); Recommended max rate 3 mcg/kg/min; Titrate 0.05 mcg/kg/min as often as every 5 minutes to achieve goal (see titration policy); Goal parameter MAP greater than 65 mmHg. Route: IV; Rate: calculated rate; Site: right jugular; 09/28 00:04 Follow up: Response: No adverse reaction; IV Status: Infusion continued upon transfer; jw7 IV Intake: 130ml Medication: 09/27 23:11 VIS not applicable for this client. jw7 Intake: 22:10 IV: 3000ml; Total: 3000ml. jw7 22:11 IV: 100ml; Total: 3100ml. jw7 09/28 00:04 IV: 130ml; Total: 3230ml. jw7 00:04 IV: 375ml; Total: 3605ml. jw7 Outcome: 09/27 21:21 ER care complete, transfer ordered by MD. harrington 09/28 00:03 Transferred by ground EMS to [facility] Condition: stable Instructed on the need for transfer, Demonstrated understanding of instructions, 00:05 Patient left the ED. jw7 Signatures: Dispatcher [employer] Humera Shin, RN RN iw Kristian Caro MD MD rn Able, Lacie, RN RN lg3 Sonali Rascon RN RN jw7 Yanna Bruno, PA-Lise PA-C sb4 Yary Burrows rv1 Dariel Moore RN RN rs5 Chetan Isabel MD MD sp4
[2023-09-27] MEDS ORDERED: LIDOCAINE 1% 20 ML MDV ONE (21:53)
[2023-09-27] MEDS ORDERED: NOREPINEPHRINE BITARTRATE/D5W 4 MG/250 ML BAG IV ONE (23:00)
[2023-09-28 00:53] VITALS: BP 119/72; O2SAT 96
--- NOTE | 2023-09-28 13:41 | EKG ---
Test Date: 2023-09-27 Test Time: 18:53:06 Snuff Box Finisher: POOJA MEASUREMENT RESULTS: Intervals: Rate: 70 MO: 174 QRSD: 140 QT: 468 QTc: 505 [place]: P: 63 MO: 174 QRS: 31 T: 47 INTERPRETIVE STATEMENTS: Normal sinus rhythm with sinus arrhythmia Right bundle branch block Abnormal ECG Compared to ECG 03/23/2023 13:48:36 Ventricular premature complex(es) no longer present Left anterior fascicular block no longer present Bifascicular block no longer present Electronically Signed On 09-28-23 13:39:22 HOME HEALTH NURSE LICENSED PRACTICAL by Bijan Bolanos
--- NOTE | 2023-09-28 13:41 | EKG ---
Test Date: 2023-09-27 Test Time: 20:07:42 Rental Management Trainee: ARABELLA MEASUREMENT RESULTS: Intervals: Rate: 76 [place]: 172 QRSD: 132 QT: 448 QTc: 504 [place]: P: 52 [place]: 172 QRS: 61 T: 45 INTERPRETIVE STATEMENTS: Normal sinus rhythm with sinus arrhythmia Right bundle branch block Abnormal ECG Compared to ECG 09/27/2023 18:53:06 No significant changes Electronically Signed On 09-28-23 13:39:09 GUEST SERVICE SUPERVISOR by Bijan Bolanos
--- NOTE | 2023-09-28 20:56 | RAD REPORT ---
EXAM DESCRIPTION: XR Chest, 1 View CLINICAL HISTORY: The patient is 68 years old and is Female; CVL placement TECHNIQUE: Frontal view of the chest. COMPARISON: No relevant prior studies available. FINDINGS: LUNGS: Mild interstitial prominence noted throughout the lungs. No consolidation. PLEURAL SPACE: Unremarkable. No pneumothorax. HEART: The cardiac silhouette is enlarged. MEDIASTINUM: Unremarkable. Normal mediastinal contour. BONES/JOINTS: Unremarkable. No acute fracture. TUBES, LINES AND DEVICES: A right IJ central venous catheter is present with the tip in the SVC. UPPER ABDOMEN: Unremarkable as visualized. IMPRESSION: 1. A right IJ central venous catheter is present with the tip in the SVC. 2. Cardiomegaly with findings suggestive of mild infectious versus edematous process. Electronically signed by: Ami Ji MD 09/27/2023 11:24 PM TELEVISION NEWSCAST DIRECTOR Due to temporary technical issues with the PACS/Fluency reporting system, reports are being signed by the in house radiologists without review as a courtesy to insure prompt reporting. The interpreting radiologist is fully responsible for the content of the report.
== END 2023-09-28 00:05 | disposition short-term general hospital (02) ==
LOC: ER 18:23
PROC: 05HM33Z Insertion of Infusion Device into Right Internal Jugular Vein, Percutaneous Approach (ICD-10-PCS; principal; 2023-09-28)
DX: K80.63 Calculus of gallbladder and bile duct with acute cholecystitis with obstruction (principal); K85.90 Acute pancreatitis without necrosis or infection, unspecified; R65.21 Severe sepsis with septic shock; K83.09 Other cholangitis; I10 Essential (primary) hypertension; J44.9 Chronic obstructive pulmonary disease, unspecified; Z88.6 Allergy status to analgesic agent
CPT/HCPCS: 93005 ×2; 87040 ×2; 85025; 36415; 85610; 83605 ×2; 85730; 83690; 80053; 74177; 71045 ×2; 76705; 51702; 99285; 36556; Q9967; J2001; J2765; J2543; J1170; J7030 ×2

== ENCOUNTER 2024-09-05 16:12 | Inpatient (IN) | payer OTHER ==
[2024-09-05] MEDS ORDERED: NOREPINEPHRINE BITARTRATE/D5W 4 MG/250 ML KIT IV ONE ×2 (16:13→20:09)
[2024-09-05] MEDS ORDERED: NA CHLORIDE 0.9% 1,000 ML ONE ×2 (16:15→19:53)
[2024-09-05 16:44] LABS: Absolute Lymphocytes (CBC) 3.1 K/uL (0.7-4.9); Absolute Monocytes 1.5 K/uL (0.1-1.3); Absolute Neutrophil 10.1 K/uL (1.8-8.0); Basophils % 0.2 % (0-1.3); Eosinophils % 0.3 % (0-4.4); Hematocrit 38.8 % (36.0-45.0); Hemoglobin 12.6 g/dL (12.0-15.0); Lymphocytes % 20.9 % (15.3-44.8); MCH 28.2 pg (27.0-35.0); MCHC 32.6 g/dL (32.0-36.0); MCV 86.6 fL (80-100); MPV 8.2 fL (7.6-11.3); Neutrophils % 68.6 % (41.7-73.7); Nucleated Red Blood Cells % 0.1 % (0-0); Platelets 275 thou/uL (152-406); RBC Red Blood Cell Count 4.48 M/uL (3.86-4.86); Red Cell Distribution Width 15.1 % (12.1-15.2)
[2024-09-05 17:02] LABS: Barbiturates NEGATIVE (NEGATIVE); Benzodiazepines POSITIVE (NEGATIVE); Cocaine NEGATIVE (NEGATIVE); METHAMPHETAM NEGATIVE (NEGATIVE); Methadone NEGATIVE (NEGATIVE); Opiates NEGATIVE (NEGATIVE); Phencyclidine NEGATIVE (NEGATIVE); THC Cannibis NEGATIVE (NEGATIVE)
[2024-09-05 17:02] LABS: ALT/SGPT 17 U/L (13-56); AST/SGOT 26 U/L (15-37); Albumin 2.9 g/dL (3.4-5.0); Albumin/Globulin Ratio 0.8 (1.1-1.8); Alkaline Phosphatase 95 U/L (45-117); BUN Blood Urea Nitrogen 21 mg/dL (7-18); Bicarbonate 19 mEq/L (21-32); Bilirubin Direct < 0.2 mg/dL (0-0.2); Bilirubin Indirect, Calculated 1.1 mg/dL (0.2-0.8); Bilirubin Total 1.3 mg/dL (0.2-1.0); Globulin 3.7 g/dL (2.3-3.5); Glomerular Filtration Rate 30 ml/min (=/>90); Glucose Level 148 mg/dL (74-106); Protein, Total 6.6 g/dL (6.4-8.2); Sodium Level 141 mEq/L (136-145)
[2024-09-05 17:05] LABS: Specific Gravity 1.016 (1.005-1.030); Sqamous Epithelial <5 /HPF (None Seen); Urine Bacteria <20 /HPF (<20); Urine Bilirubin NEGATIVE (Negative); Urine Blood Negative (Negative); Urine Clarity Extremely Turbid (Clear); Urine Color Yellow (Yellow); Urine Crystals Unidentified Few /HPF (None Seen); Urine Culture Reflex Order REFLEXED; Urine Glucose NEGATIVE (Negative); Urine Ketones NEGATIVE (Negative); Urine Microscopic Reflex YN ORDER UMIC; Urine Mucus Slight /HPF (None Seen); Urine Nitrite NEGATIVE (Negative); Urine Protein TRACE (Negative); Urine RBC <5 /HPF (None Seen); Urine Urobilinogen Normal (Normal); Urine WBC 20-50 /HPF (<5); Urine pH 5.5 (5.0-7.0)
[2024-09-05 17:46] LABS: PT Prothrombin Time 12.6 SECONDS (9.4-12.5); PTT, Activated Partial Thromb 34.3 SECONDS (24.3-36.9); Protime INR 1.13
--- NOTE | 2024-09-05 19:27 | RAD REPORT ---
EXAM: CT Head Brain Wo Cont HISTORY: AMS COMPARISON: 08/04/2021. TECHNIQUE: Multiple contiguous axial images were obtained for a CT of the brain without contrast. Sag ittal and coronal reformats were performed. One or more of the following dose reduction techniques were used: Automated exposure control, adjus tment of the mA and kV according to patient size, and iterative reconstruction. Unless otherwise specified, incidental findings do not require dedicated imaging follow-up. FINDINGS: No evidence of hydrocephalus, intracranial hemorrhage, or extra-axial fluid collection. The brain is normal in morphology. The calvarium is intact. The visualized paranasal sinuses and mastoid air cells are essentially clear . IMPRESSION: No evidence of acute intracranial abnormality.
--- NOTE | 2024-09-05 19:31 | EDPHYS ---
Physician Documentation [facility] Name: Ivet May Age: 69 yrs Sex: Female : 1955 Arrival Date: 09/05/2024 Time: 16:12 Bed 2 Private MD: ED Physician Efraín Rodriguez HPI: 09/05 17:57 This 69 yrs old Female presents to ER via EMS with complaints of Possible Overdose. ms3 17:57 Ms. May is brought to the Emergency Department after ingesting up to 60 pills each ms3 of Xanax (0.5 mg) and Venlafaxine. EMS reports this was an intentional overdose with suicidal intent. Upon arrival, her initial blood pressure was unobtainable, but subsequent readings after fluid resuscitation and administration of medication showed improvement from 40/30 mmHg to 100/60 mmHg. Her heart rate was approximately 60 beats per minute. She was initially unresponsive but became somewhat responsive after treatment. Her oxygen saturation was noted to be 65%, suspected to be due to hypoperfusion, and later improved. Patient's states patient's daughter last and the Holidays are coming.. 19:16 Family member reports approximately 55 tablets of venlafaxine, 42 tablets of Xanax as ec2 well as 55 tablets amlodipine missing.. Historical: - Allergies: 16:21 Aspirin; iw 16:21 Ibuprofen; iw - Home Meds: 20:25 venlafaxine 50 mg oral tablet 1 tab daily [Active]; amlodipine 5 mg oral tablet 1 tab cp4 daily [Active]; alprazolam 0.5 mg Oral tab 1 tab 3 times per day for Anxiety [Active]; fenofibrate 160 mg oral tablet 1 tab daily [Active]; - PMHx: 16:21 COPD; Hypertension; iw - Immunization history:: Adult Immunizations unknown. - Infectious Disease History:: family denies. - Social history:: Smoking status: unknown. ROS: 17:57 Unable to obtain ROS due to altered mental status, ms3 19:30 Constitutional: as per hpi ec2 Exam: 17:28 ECG was reviewed by the Attending Physician. ms3 17:57 Constitutional: This is a well developed, well nourished patient who is awake, alert, ms3 and in no acute distress. Chest/axilla: Normal chest wall appearance and motion. Nontender with no deformity. Cardiovascular: Regular rate and rhythm with a normal S1 and S2. No gallops, murmurs, or rubs. Normal PMI, no JVD. No pulse deficits. Respiratory: Lungs have equal breath sounds bilaterally, clear to auscultation and percussion. No rales, rhonchi or wheezes noted. No increased work of breathing, no retractions or nasal flaring. Abdomen/GI: Soft, non-tender, with normal bowel sounds. No distension or tympany. No guarding or rebound. No evidence of tenderness throughout. MS/ Extremity: Pulses equal, no cyanosis. Neurovascular intact. Full, normal range of motion. 17:57 Skin: Appearance: Color: pale, 17:57 Neuro: Mentation: confused, Vital Signs: 16:10 BP 95 / 54; Pulse 71; Resp 16; Pulse Ox 84% on R/A; iw 16:23 BP 109 / 87; Pulse 74; Resp 20; Pulse Ox 100% on Non-rebreather mask; Weight 96.16 kg iw (M); 16:51 Temp 95.2(TE); tm6 16:55 BP 91 / 52; Pulse 74; Resp 21; Pulse Ox 99% on Non-rebreather mask; MAP 65 mmHg; tm6 17:03 BP 104 / 59; Pulse 78; Resp 21; Temp 95.0(TE); Pulse Ox 97% on Non-rebreather mask; MAP tm6 72 mmHg; 17:51 BP 99 / 58; Pulse 75; Temp 96.1(A); Pulse Ox 100% ; MAP 71 mmHg; tm6 18:18 BP 101 / 60; Pulse 77; Pulse Ox 99% on Non-rebreather mask; MAP 73 mmHg; tm6 19:00 BP 103 / 58; Pulse 79; Resp 20; Pulse Ox 100% on 15 lpm Non-rebreather mask; cp4 19:30 BP 104 / 56; Pulse 79; Resp 20; Pulse Ox 97% on 15 lpm Non-rebreather mask; cp4 20:00 BP 112 / 61; Pulse 83; Resp 20; Pulse Ox 100% on 15 lpm Non-rebreather mask; cp4 20:30 BP 111 / 59; Pulse 83; Resp 19; Pulse Ox 100% on 15 lpm Non-rebreather mask; cp4 21:00 BP 106 / 55; Pulse 82; Resp 20; Pulse Ox 100% on 15 lpm Non-rebreather mask; cp4 21:30 BP 120 / 57; Pulse 86; Resp 20; Pulse Ox 100% on 15 lpm Non-rebreather mask; lg3 Jonathan Coma Score: 17:57 Eye Response: spontaneous(4). Motor Response: localizes pain(5). Verbal Response: ms3 confused(4). Total: 13. MDM: 16:30 Medical Screening Exam initiated ms3 17:57 Differential diagnosis: Ingestion/exposure to Xanax polypharmacy, over medication, ms3 intracranial hemorrhage. 18:25 Data reviewed: vital signs. ED course: Patient signed out to me by previous physician, ec2 in brief arrives today after suspected overdose with possibly 60 tablets of 0.5 mg Xanax as well as 60 tablets of venlafaxine. Patient is on peripheral Levophed to temporize hypotension which we expect to be temporary given the ingestion and wanted to hold off on performing central line at this time. Patient did have an elevated Tylenol level and is due for repeat Tylenol level at 2030. Plan is to follow-up CT scan of the head, admit to hospitalist with repeat Tylenol level and continued peripheral pressors.. 18:27 ED course: Tylenol level at 90. Metabolic profile shows renal dysfunction with a ec2 creatinine of 1.79 and GFR of 30. CBC shows slight leukocytosis. LFTs are nonactionable. Drug screen pertinent for benzodiazepines.. 19:29 ED course: CT scan of the head shows no acute intracranial normality. Will admit to 2 ICU. Discussed case with hospitalist, pending admission.. 09/05 16:24 Order name: Acetaminophen; Complete Time: 18: 09/05 16:24 Order name: Basic Metabolic Panel; Complete Time: 18: 09/05 16:24 Order name: CBC with Diff; Complete Time: 18: 09/05 16:24 Order name: ETOH Level; Complete Time: 18: 09/05 16:24 Order name: Hepatic Function; Complete Time: 18:08 09/05 16:24 Order name: PT-INR; Complete Time: 18:08 09/05 16:24 Order name: Ptt, Activated; Complete Time: 18: 09/05 16:24 Order name: Salicylate; Complete Time: 18:08 iw 09/05 16:24 Order name: Urinalysis w/ reflexes; Complete Time: 18:08 iw 09/05 16:24 Order name: Urine Drug Screen; Complete Time: 18:08 iw 09/05 17:08 Order name: Urine Culture EDMS 09/05 20:15 Order name: Urinalysis w/ reflexes EDMS 09/05 20:15 Order name: CBC with Automated Diff EDMS 09/05 20:15 Order name: CBC with Automated Diff EDMS 09/05 20:15 Order name: Comprehensive Metabolic Panel EDMS 09/05 20:15 Order name: Comprehensive Metabolic Panel EDMS 09/05 20:42 Order name: Tylenol Level [facility] 09/05 21:23 Order name: Acetaminophen Level EDIA 09/05 16:38 Order name: CT Head Brain wo Cont; Complete Time: 19:29 ms3 09/05 19:39 Order name: Chest Single View XRAY; Complete Time: 21:17 cp4 09/05 16:24 Order name: EKG; Complete Time: 16:25 iw 09/05 20:15 Order name: EKG Electrocardiogram EDIA 09/05 20:15 Order name: EKG Electrocardiogram EDIA 09/05 16:24 Order name: EKG - Nurse/Tech; Complete Time: 16:35 09/05 16:24 Order name: IV Saline Lock; Complete Time: 16:35 09/05 16:24 Order name: Labs collected and sent; Complete Time: 16:49 iw 09/05 16:57 Order name: Labs - recollect needed: recollect blue top; Complete Time: 17:11 bd 09/05 18:08 Order name: Jailene Chew; Complete Time: 18:18 ms3 09/05 18:59 Order name: Misc. Order: repeat tylenol level at 2030; Complete Time: 20:48 ec2 09/05 19:02 Order name: PICC Line Insertion; Complete Time: 19:40 ec2 EC:28 Rate is 68 beats/min. Rhythm is regular. QRS [place] is Normal. AR interval is normal. QRS ms3 interval is prolonged. Clinical impression: NSR w/ Non-specific ST/T Changes and RBBB. Interpreted by me. Reviewed by me. Administered Medications: 16:20 Drug: Norepinephrine IV 0.1 mcg/kg/min IV at calculated rate See Administration tm6 Instructions; (Standard concentration 4 mg / 250 mL D5W); Recommended max rate 3 mcg/kg/min; Titrate 0.05 mcg/kg/min as often as every 5 minutes to achieve goal (see titration policy); Goal parameter MAP greater than 65 mmHg. Route: IV; Rate: calculated rate; Site: left antecubital; 16:57 Follow up: Response: No adverse reaction; Rate change 0.2 mcg/kg/min; IV Status: tm6 Infusion continued 21:34 Follow up: IV Status: Infusion continued; Infusion continued upon admission cp4 19:52 Drug: NS 0.9% IV 1000 ml IV at 1000 ml once; to be given as a bolus over 60 minutes cp4 Route: IV; Rate: 1000 ml; Site: left antecubital; 21:00 Follow up: Response: No adverse reaction; IV Status: Completed infusion cp4 20:07 Drug: Sodium Bicarbonate IVP 50 mEq IVP once Route: IVP; Site: right hand; cp4 20:15 Follow up: Response: No adverse reaction cp4 20:15 Drug: Calcium Gluconate IVPB 2 grams IVPB once over 60 mins; (mix in NS 100 mL) Route: cp4 IVPB; Infused Over: 60 mins; Site: right hand; 21:15 Follow up: Response: No adverse reaction; IV Status: Completed infusion cp4 Disposition Summary: 09/05/24 19:30 Hospitalization Ordered Notes: Hospitalization Status: Inpatient Admission ec2 Provider: Jonathan Barksdale ec2 Location: Intensive Care Unit ec2 Condition: Serious ec2 Problem: new ec2 Symptoms: have improved ec2 Bed/Room Type: Standard ec2 Room Assignment: 4-(09/05/24 20:44) lg3 Diagnosis - Overdose of multiple drugs ec2 - Hypotension ec2 Forms: - Medication Reconciliation Form ec2 - SBAR form ec2 - Leadership Thank You Letter ec2 Critical care time excluding procedures: 19:29 Critical care time: Bedside Care: 30 minutes, Consultation: 5 minutes. Total time: 35 ec2 minutes Signatures: Dispatcher [employer] Emilee Rosales Irene, RN RN iw Anita Colunga RN RN lg3 Chicho Guzman DO DO ms3 Efraín Rodriguez MD MD ec2 Kia Briscoe cp4 Lazaro Cruz RN RN tm6 Corrections: (The following items were deleted from the chart) 17:59 17:57 Ms. May is brought to the Emergency Department after ingesting up to 60 pills ms3 each of Xanax (0.5 mg) and Venlafaxine. EMS reports this was an intentional overdose with suicidal intent. Upon arrival, her initial blood pressure was unobtainable, but subsequent readings after fluid resuscitation and administration of medication showed improvement from 40/30 mmHg to 100/60 mmHg. Her heart rate was approximately 60 beats per minute. She was initially unresponsive but became somewhat responsive after treatment. Her oxygen saturation was noted to be 65%, suspected to be due to hypoperfusion, and later improved. . ms3 20:44 19:30 ec2 lg3
--- NOTE | 2024-09-05 19:31 | ER ---
Nurse's Notes [facility] Name: Ivet May Age: 69 yrs Sex: Female : 1955 Arrival Date: 09/05/2024 Time: 16:12 Bed 2 Private MD: Diagnosis: Overdose of multiple drugs;Hypotension Presentation: 09/05 16:10 Chief complaint: EMS states: pt found comatose by , last seen normal at 0730 iw this morning , pt is missing 60 tablets of her Xanax 0.5 and venlafaxine 50 mg. Coronavirus screen: At this time, the client does not indicate any symptoms associated with coronavirus-19. Ebola Screen: No symptoms or risks identified at this time. 16:10 Method Of Arrival: EMS: [facility] iw 16:10 Acuity: PETE 1 iw 16:10 Initial Sepsis Screen: Does the patient meet any 2 criteria? No. Patient's initial iw sepsis screen is negative. Does the patient have a suspected source of infection? No. Patient's initial sepsis screen is negative. Risk Assessment: Do you want to hurt yourself or someone else? Unable to obtain. Onset of symptoms was September 05, 2024. Care prior to arrival: Medication(s) given: Normal saline infusion, 500 mL, IV initiated. 18 GA, in the left antecubital area, Oxygen administered. via a non-rebreather mask. Activity prior to arrival: unresponsive. Transition of care: patient was not received from another setting of care. 16:10 Note Poison Control was contacted by Holden Yanez [facility] , manage pt's symptoms, iw possible intubation, Case # [id number]. Historical: - Allergies: 16:21 Aspirin; iw 16:21 Ibuprofen; iw - Home Meds: 20:25 venlafaxine 50 mg oral tablet 1 tab daily [Active]; amlodipine 5 mg oral tablet 1 tab cp4 daily [Active]; alprazolam 0.5 mg Oral tab 1 tab 3 times per day for Anxiety [Active]; fenofibrate 160 mg oral tablet 1 tab daily [Active]; - PMHx: 16:21 COPD; Hypertension; iw - Immunization history:: Adult Immunizations unknown. - Infectious Disease History:: family denies. - Social history:: Smoking status: unknown. Screenin:29 [facility] ED Fall Risk Assessment (Adult) History of falling in the last 3 months, cp4 including since admission No falls in past 3 months (0 pts) Confusion or Disorientation Yes (5 pts) Intoxicated or Sedated No (0 pts) Impaired Gait Yes (1 pt) Mobility Assist Device Used Yes (1 pt) Altered Elimination Yes (1 pt) Score/Fall Risk Level 3 or more points = High Risk Oriented to surroundings, Maintained a safe environment, Assessed \\T\\ reinforced patient's understanding of fall precautions, Hourly rounding (assess needs \\T\\ fall precautionary measures) done. Abuse screen: Denies threats or abuse. Nutritional screening: No deficits noted. Tuberculosis screening: No symptoms or risk factors identified. Assessment: 16:21 Reassessment: pt placed on NRB. SP O2 upto98% , RT at bedside, at bedside. iw 16:55 General: Appears ill, Behavior is unresponsive. Pain: Unable to use pain scale. Patient tm6 is disoriented. Patient is unresponsive. Neuro: Level of Consciousness is obtunded, Oriented to none. Cardiovascular: Rhythm is sinus rhythm. Respiratory: Airway is patent Respiratory effort is labored, Respiratory pattern is regular. GI: Abdomen is round. 17:02 Neuro: Pupils are non-reactive. tm6 18:18 Neuro: Level of Consciousness is obtunded. tm6 18:45 Reassessment: pt transported to Ct via stretcher, remains on Levophed drip, on NRB , iw with RN. 18:58 Reassessment: pt returned to ER room 2 , placed back on monitor, VSS. iw 19:00 Reassessment: Suicide screening unable to be oompleted at this time due to patient cp4 condition. Patient responds to name at this time. 19:35 Reassessment: Granddaughter counted patient pills and reported that 55 amlodipine pills cp4 are missing in addition to other medications taken. Provider updated. Will contact poison control. 19:45 Reassessment: PICC line nurse at bedside for PICC line insertion. cp4 19:48 Reassessment: Contacted poison control for update on patient taking amlodipine. cp4 Suggested calcium gluconate up to 3-4 doses ever 15-20 minutes. If levophed does not control BP, suggest calcium drip. EKGs every Q6H. Keep electrolytes in balance: K 4.0-4.5, Mg above 2.0, and Ca above 9.0. 20:29 General: Appears distressed, comfortable, Behavior is flat, listless. Pain: Unable to cp4 use pain scale. Patient is disoriented. Neuro: Level of Consciousness is awake, Oriented to person. Cardiovascular: Patient's skin is warm and dry. Rhythm is sinus rhythm. Respiratory: Airway is patent Respiratory effort is even, unlabored, Respiratory pattern is regular. GI: Abdomen is round. GI: No deficits noted. : No deficits noted. EENT: No deficits noted. Derm: No deficits noted. Musculoskeletal: No deficits noted. Overdose: 16:12 [place] Suicide Severity Screening: unable to assess at this time, due to patient not tm6 alert or able to speak. states patient has expressed suicidal intent. 16:12 Patient took pt is missing 60 tablets of her Xanax 0.5 and venlafaxine 50 mg. Overdose tm6 occurred unknown. 21:24 [place] Suicide Severity Screening: "In the past month, have you wished you were cp4 or wished you could go to sleep and not wake up?" Patient responds "yes." Based off client's responses, additional C-SSRS screening questions required. "In the past month, have you actually had any thoughts of killing yourself?" Patient responds "yes." Based off client's responses, additional C-SSRS screening questions required. "In your lifetime, have you ever done anything, started to do anything, or prepared to do anything to end your life?" Patient responds "yes." Patient reports suicidal intent occurred greater than 3 months prior. Vital Signs: 16:10 BP 95 / 54; Pulse 71; Resp 16; Pulse Ox 84% on R/A; iw 16:23 BP 109 / 87; Pulse 74; Resp 20; Pulse Ox 100% on Non-rebreather mask; Weight 96.16 kg iw (M); 16:51 Temp 95.2(TE); tm6 16:55 BP 91 / 52; Pulse 74; Resp 21; Pulse Ox 99% on Non-rebreather mask; MAP 65 mmHg; tm6 17:03 BP 104 / 59; Pulse 78; Resp 21; Temp 95.0(TE); Pulse Ox 97% on Non-rebreather mask; MAP tm6 72 mmHg; 17:51 BP 99 / 58; Pulse 75; Temp 96.1(A); Pulse Ox 100% ; MAP 71 mmHg; tm6 18:18 BP 101 / 60; Pulse 77; Pulse Ox 99% on Non-rebreather mask; MAP 73 mmHg; tm6 19:00 BP 103 / 58; Pulse 79; Resp 20; Pulse Ox 100% on 15 lpm Non-rebreather mask; cp4 19:30 BP 104 / 56; Pulse 79; Resp 20; Pulse Ox 97% on 15 lpm Non-rebreather mask; cp4 20:00 BP 112 / 61; Pulse 83; Resp 20; Pulse Ox 100% on 15 lpm Non-rebreather mask; cp4 20:30 BP 111 / 59; Pulse 83; Resp 19; Pulse Ox 100% on 15 lpm Non-rebreather mask; cp4 21:00 BP 106 / 55; Pulse 82; Resp 20; Pulse Ox 100% on 15 lpm Non-rebreather mask; cp4 21:30 BP 120 / 57; Pulse 86; Resp 20; Pulse Ox 100% on 15 lpm Non-rebreather mask; lg3 Jonathan Coma Score: 17:57 Eye Response: spontaneous(4). Motor Response: localizes pain(5). Verbal Response: ms3 confused(4). Total: 13. ED Course: 16:13 Patient arrived in ED. tm6 16:13 Chicho Guzman DO is Attending Physician. ec2 16:23 Triage completed. iw 16:23 Arm band placed on. iw 16:27 Maintain EMS IV. Dressing intact. Good blood return noted. Site clean \\T\\ dry. Gauge \\T\\ iw site: 18 LAC. Flushed with 10 mL NS. 16:27 Inserted saline lock: 20 gauge in right wrist, using aseptic technique. Blood tm6 collected. Flushed with 10 mL NS. Oxygen administration via non-rebreather mask \\T\\ 15L/min. 16:45 Davila cath inserted, using sterile technique, 14 Fr., by ak, balloon inflated, to tm6 gravity drainage, urine specimen collected. returned antelmo urine. Patient tolerated well. 16:49 Lazaro Cruz RN is Primary Nurse. tm6 16:50 Urinalysis w/ reflexes Sent. tm6 16:50 Urine Drug Screen Sent. tm6 17:10 Client placed on continuous cardiac and pulse oximetry monitoring. NIBP monitoring tm6 applied. night monitor on. Pulse ox on. NIBP on. bev hugger applied. 18:14 Attending Physician role handed off by Chicho Guzman DO ec2 18:14 Efrían Rodriguez MD is Attending Physician. ec2 18:49 CT Head Brain wo Cont In Process Unspecified. EDMS 19:30 Jonathan Barksdale MD is Hospitalizing Provider. ec2 19:49 Chest Single View XRAY In Process Unspecified. EDMS 20:29 Placed in gown. Bed in low position. Call light in reach. Side rails up X2. Adult w/ cp4 patient. Provided Education on: overdose. 20:29 No provider procedures requiring assistance completed. Accessed PICC line. Clean \\T\\ dry. cp4 Dressing intact. Good blood return. Flushes easily. 21:30 Patient admitted, IV remains in place. cp4 Administered Medications: 16:20 Drug: Norepinephrine IV 0.1 mcg/kg/min IV at calculated rate See Administration tm6 Instructions; (Standard concentration 4 mg / 250 mL D5W); Recommended max rate 3 mcg/kg/min; Titrate 0.05 mcg/kg/min as often as every 5 minutes to achieve goal (see titration policy); Goal parameter MAP greater than 65 mmHg. Route: IV; Rate: calculated rate; Site: left antecubital; 16:57 Follow up: Response: No adverse reaction; Rate change 0.2 mcg/kg/min; IV Status: tm6 Infusion continued 21:34 Follow up: IV Status: Infusion continued; Infusion continued upon admission cp4 19:52 Drug: NS 0.9% IV 1000 ml IV at 1000 ml once; to be given as a bolus over 60 minutes cp4 Route: IV; Rate: 1000 ml; Site: left antecubital; 21:00 Follow up: Response: No adverse reaction; IV Status: Completed infusion cp4 20:07 Drug: Sodium Bicarbonate IVP 50 mEq IVP once Route: IVP; Site: right hand; cp4 20:15 Follow up: Response: No adverse reaction cp4 20:15 Drug: Calcium Gluconate IVPB 2 grams IVPB once over 60 mins; (mix in NS 100 mL) Route: cp4 IVPB; Infused Over: 60 mins; Site: right hand; 21:15 Follow up: Response: No adverse reaction; IV Status: Completed infusion cp4 Medication: 20:29 VIS not applicable for this client. cp4 Outcome: 19:30 Decision to Hospitalize by Provider. ec2 21:30 Admitted to ICU accompanied by nurse, via stretcher, with oxygen, on monitor, with cp4 chart, Report called to [facility] 21:30 Condition: stable 21:30 Instructed on the need for admit, cp4 21:31 Patient left the ED. cp4 Signatures: Dispatcher [employer] Humera Shin RN RN iw Able, Anita RN RN lg3 Chicho Guzman, DO ms3 Efraín Rodriguez MD MD 2 Kia Briscoe cp4 Lazaro Cruz RN RN tm6 Corrections: (The following items were deleted from the chart) 16:21 16:21 Reassessment: pt placed on NRB. SP O2 upto98% iw iw 16:26 16:23 BP 109 / 87; Pulse 74bpm; Resp 20bpm; Pulse Ox 100% Non-rebreather mask; iw iw 17:10 17:03 BP 104 / 59; Pulse 78bpm; Resp 21bpm; Pulse Ox 97% RA; MAP 72 mmHg; Temp 95.0F tm6 Temporal; tm6 20:17 16:10 Chief complaint: EMS states: pt found comatose by , last seen normal at tm6 0730 this morning , pt is missing 60 tablets of her Xanax 0.5 and venlafaxine 50 mg iw 21:43 21:00 BP 120 / 57; Pulse 86bpm; Resp 20bpm; Pulse Ox 100% 02 15lpm Non-rebreather mask; lg3 cp4
--- NOTE | 2024-09-05 19:44 | P.HP ---
Certification for Inpatient Patient admitted to: Inpatient With expected LOS: >2 Midnights Practitioner: I am a practitioner with admitting privileges, knowledge of patient current condition, hospital course, and medical plan of care. Services: Services provided to patient in accordance with Admission requirements found in Title 42 Section 412.3 of the Code of Federal Regulations Patient History Date of Service: 09/06/24 Reason for admission: Overdose History of Present Illness: 69 yrs old Female with past medical history of COPD, hypertension, depression, anxiety who was brought to ER with overdosage. Patient is drowsy at the time of interview hence most of the history is obtained from the chart review and also talking to the ER physician. She was brought to the Emergency Department after ingesting up to 60 pills each of Xanax (0.5 mg) and Venlafaxine. EMS reports this was an intentional overdose with suicidal intent. Patient was assessed in the ER and was hypotensive to 40/30 mmHg and had fluid resuscitation and was started on Levophed. She was also found to be hypoxic and was placed on oxygen supplementation. Patient is being admitted to ICU after consulting poison control . Family member reports approximately 55 tablets of venlafaxine, 42 tablets of Xanax as well as 55 tablets amlodipine missing.. Allergies aspirin Allergy (Verified 10/27/16 10:51) swelling ibuprofen Allergy (Verified 10/27/16 10:51) swelling Home medications list reviewed: Yes Home Medications: Albuterol Sulfate [Proair Hfa] 2 puff IH QIDP PRN 12/12/11 Alprazolam [Xanax] 0.5 mg PO TID PRN 12/12/11 Atorvastatin Calcium [Lipitor] 40 mg PO DAILY 12/12/11 Venlafaxine HCl [Effexor] 50 mg PO DAILY 12/12/11 lisinopriL [Prinivil*] 10 mg PO DAILY 10/27/16 Benzonatate [Tessalon Perle*] 200 mg PO TID PRN #30 cap 10/29/16 Budesonide/Formoterol Fumarate [Symbicort 160-4.5 Mcg Inhaler] 2 puff IN BID #1 hfa.aer.ad 10/29/16 levoFLOXacin [Levaquin*] 500 mg PO DAILY #7 tab 10/29/16 predniSONE [Prednisone*] 20 mg PO SEECOM #15 tab 10/29/16 Amlodipine Besylate 09/05/24 Amlodipine Besylate 1 tab PO DAILY 09/05/24 Fenofibrate 160 mg PO DAILY 09/05/24 - Past Medical/Surgical History Diabetic: No Past Medical History: Reviewed- Non-Contributory -: COPD -: Hypertension Past Surgical History: Reviewed- Non-Contributory -: Knee surgery - Family History Mother -: Cancer - Social History Smoking Status: Never smoker Alcohol use: No CD- Drugs: No Caffeine use: No Review of Systems is unable to be obtained Physical Examination - Vital Signs Temperature: 97 F Blood Pressure: 99/53 Pulse: 82 Respirations: 24 Pulse Ox (%): 96 - Physical Exam General: Moderate distress, Unresponsive HEENT: Atraumatic, Normocephalic Neck: Supple, No Thyromegaly Respiratory: Clear to auscultation bilaterally, Normal air movement Cardiovascular: Regular rate/rhythm, Normal S1 S2 Capillary refill: <2 Seconds Gastrointestinal: Soft and benign, W/out hepatosplenomegaly Musculoskeletal: No clubbing, No swelling Integumentary: No rashes Neurological: Other (Drowsy ), Abnormal gait, Abnormal speech, Abnormal strength Lymphatics: No axilla or inguinal lymphadenopathy - Studies Laboratory Data (last 24 hrs) 09/05/24 09/05/24 09/05/24 17:30 16:35 16:35 WBC 14.70 H Hgb 12.6 Hct 38.8 Plt Count 275 PT 12.6 H INR 1.13 APTT 34.3 Sodium 141 Potassium 4.0 BUN 21 H Creatinine 1.79 H Glucose 148 H Total Bilirubin 1.3 H AST 26 ALT 17 Alkaline Phosphatase 95 Assessment and Plan - Plan Drug overdose Suicidal intent Monitor closely in ICU Monitor under telemetry For arrhythmias Appreciate help from poison control Serial blood works Metabolic acidosis Acute kidney injury Possibly prerenal Started on IV hydration Leukocytosis UTI Started on IV antibiotic monitor closely Acute hypoxic respiratory failure Started on oxygen supplementation Will get an x-ray chest Circulatory shock Possibly induced by medications On Levophed Will titrate to MAP of more than 65 Acetaminophen overdosage Tylenol level monitored Poison control on board Started on acetylcysteine as per protocol GI/DVT prophylaxis Advanced directive full code Total critical care time used was 68 minutes Discharge Plan: Psychiatry Plan to discharge in: Greater than 2 days - Advance Directives Does patient have a Living Will: No Does patient have a Durable POA for Healthcare: No - Code Status/Comfort Care Code Status: Full Code Time Spent Managing Pts Care (In Minutes): 48
[2024-09-05] MEDS ORDERED: SODIUM BICARB 50 MEQ/50ML VIAL ONE (19:55)
[2024-09-05] MEDS ORDERED: CALCIUM GLUCONATE 1 GM IVPB 2 GM/100 ML BAG IV ONE (20:09)
--- NOTE | 2024-09-05 20:48 | RAD REPORT ---
EXAMINATION: ONE VIEW CHEST XR CLINICAL INDICATION: Female, 69 years old.,PICC Line TECHNIQUE: Frontal chest projection is submitted. Examination is limited by patient positioning and t echnique. COMPARISON: 09/27/2023 FINDINGS: Central interstitial prominence is again seen. No pneumothorax. Trace bilateral effusions, possibly progressive right arm PICC with tip at the level of the superior cavoatrial junction. Right IJ CVC has been removed. The heart is upper limit of normal in size. Mediastinal contours are unremarkable. IMPRESSION: Satisfactory positioning of right arm PICC. Stable findings suggesting central congestion or CHF.
[2024-09-05] MEDS: D5 0.45 NS 1,000 ML IV SCH (22:00)
[2024-09-06] MEDS: NOREPINEPHRINE 4 MG in D5W 250 ML IV SCH (00:14)
[2024-09-06] MEDS: NOREPINEPHRINE BITARTRATE/D5W 4 MG/250 ML KIT IV ONE ×2 (00:14→05:24)
[2024-09-06 01:08] LABS: Blood O2 Saturation 98.4 % (92-98.5)
[2024-09-06 01:09] LABS: Arterial Blood Carboxyhemoglob 0.2 % (0-1.5); Blood Gas Oxyhemoglobin 95.9 % (94-97); Blood Gas THB 14.5 g/dl (12-18)
[2024-09-06] MEDS: ALBUTEROL 2.5 MG/3 ML NEB SOL NEB PRN (01:24)
[2024-09-06] MEDS: IPRATROPIUM BROM 0.5MG/2.5ML NEB PRN (01:24)
[2024-09-06] MEDS: D5W 250 ML IV ONE (01:59)
[2024-09-06] MEDS: ACETYLCYSTEINE 15,000 MG in D5W 200 ML IV SCH (02:00)
[2024-09-06] MEDS ORDERED: Acetylcysteine 6000mg/30mL IV ONE ×2 (02:00→04:06)
[2024-09-06] MEDS: NA CHLORIDE 0.9% IV SCH (03:00)
[2024-09-06] MEDS: ACETYLCYSTEINE IV SCH (03:00)
[2024-09-06] MEDS: ONDANSETRON 4 MG/2 ML VIAL IV PRN (04:06)
[2024-09-06 05:02] LABS: Absolute Lymphocytes (CBC) 1.3 K/uL (0.7-4.9); Absolute Monocytes 0.8 K/uL (0.1-1.3); Absolute Neutrophil 13.3 K/uL (1.8-8.0); Basophils % 0.2 % (0-1.3); Hematocrit 39.4 % (36.0-45.0); Hemoglobin 12.5 g/dL (12.0-15.0); Lymphocytes % 8.7 % (15.3-44.8); MCH 27.8 pg (27.0-35.0); MCHC 31.7 g/dL (32.0-36.0); MCV 87.7 fL (80-100); MPV 8.3 fL (7.6-11.3); Monocytes % 5.1 % (3.3-12.3); Platelets 223 thou/uL (152-406); RBC Red Blood Cell Count 4.49 M/uL (3.86-4.86); Red Cell Distribution Width 15.1 % (12.1-15.2)
[2024-09-06 05:25] LABS: Albumin 2.5 g/dL (3.4-5.0); Albumin/Globulin Ratio 0.7 (1.1-1.8); Anion Gap 14.6 mEq/L (5.0-15.0); Globulin 3.7 g/dL (2.3-3.5); Magnesium 1.6 mg/dL (1.6-2.4); Phosphorus 3.8 mg/dL (2.5-4.9); Potassium 3.6 mEq/L (3.5-5.1); Protein, Total 6.2 g/dL (6.4-8.2)
[2024-09-06 05:29] LABS: Band Neutrophils 8 % (0-1); Differential Total Cells Count 100; Lymphocytes 8 % (15-42); Monocytes 9 % (0-10); Segmented Neutrophils 75 % (40-80)
[2024-09-06 05:30] LABS: Blood Morphology Comment NOT SEEN (NOT SEEN); Platelet Estimate ADEQ
[2024-09-06] MEDS: MAGNESIUM SULFATE 1 gm IVPB 1 GM/100 ML BAG IV ONE (06:16)
--- NOTE | 2024-09-06 07:04 | P.PN ---
Date of Service: 09/06/24 Subjective: had episode of vomiting overnight and aspirated while on bipap oriented x2-3, Responding to some questions with slow, slightly slurred speech BP improving afebrile ROS: unable to fully obtain Physical Exam: GEN: oriented x2-3, tired / slurred speech slightly / groggy HEENT: Normal conjunctiva, sclera anicteric CV: Regular rate and rhythm, no edema Pulm: on 6L via HFNC, Crackles right lung base ABD: soft, nontender, nondistended Neuro: moves all extremities spontaneously ann in place; placed 09/05 Problem List: Drug overdose with suicidal intent Aspiration pneumonia Acute hypoxic respiratory failure secondary to above Hypotension Acetaminophen overdose BETTE Metabolic acidosis Suspected UTI Elevated LFTs Depression/Anxiety COPD, chronic Hypertension Drug overdose with suicidal intent Aspiration pneumonia Acute hypoxic respiratory failure secondary to above Hypotension Found unresponsive by family at home. Brought in by EMS for suspected intentional overdose with suicidal intent 40-50 xanax tabs, ~55 Venlafaxine tabs, ~55 amlodipine tablets are all missing per family reportedly found to be hypotensive in ED 40/30s. Given IVF and started on levophed drip. BP improving; has been stable in 100-110s CXR (09/06): worsening RLL aeration with probable developing infiltrate. Possible Aspiration nursing staff reports episode of vomiting overnight NPO for now until more awake/alert. Aspiration precautions. Speech consulted to madi Continue ICU level of care. Monitor on telemetry. Close monitoring. Poison control contacted. wean levophed as tolerated. continue IV fluids Start zosyn (09/06-) will cover PNA and also covers urine patient with SIRS criteria and hypotensive / shock - secondary to drug overdose/toxicity denies having any infectious symptoms / UTI symptoms prior to ingesting medication vitals and labs more of a result of drug overdose, and not sepsis however, did aspirate while on bipap / vomited last night, so abx added continue acetylcysteine Acetaminophen overdose Acetaminophen levels 90.7 on admission. Trend tylenol levels - improving continue acetylcysteine per protocol BETTE Metabolic acidosis given IVF and bicarb in ED continue IV fluids continue to monitor renal function Monitor and replete electrolytes Suspected UTI UA with +LE, +WBC denies symptoms, may be asymptomatic bacteruria urine cx (09/05): 4+ GNR Follow urine culture afebrile, +leukocytosis Start zosyn (09/06-) Elevated LFTs likely secondary to hypotension vs tylenol toxicity T. bili 1.1 / AST 148 Trend LFTs GI consulted Depression/Anxiety COPD, chronic Hypertension confirm home meds VTE: SCD Code: Full Continue ICU level of care family updated 09/06 Time Spent Managing Pts Care (In Minutes): 57
--- NOTE | 2024-09-06 07:59 | RAD REPORT ---
EXAMINATION: ONE VIEW CHEST XR CLINICAL INDICATION: Vomited/possible aspiration TECHNIQUE: Frontal chest projection is submitted. Examination is limited by patient positioning and t echnique. COMPARISON: 09/05/2024 FINDINGS: Bibasilar lung opacities are present, greatest in the right lower lung, likely representing filtrate/ pneumonia. Trace bilateral pleural effusions. The heart is moderately enlarged. Right-sided PICC line is tip in SVC. Aortic atherosclerosis. IMPRESSION: Right lower lobe demonstrates moderate worsening lung aeration with probable developing infiltrate. A spiration is certainly possible.
[2024-09-06] MEDS: CEFTRIAXONE 1,000 MG in NA CHLORIDE 0.9% 50 ML IVPB SCH (08:03)
[2024-09-06] MEDS: KCL 20 MEQ/100 mL IVPB 20 MEQ/100 ML BAG IV SCH (08:04)
[2024-09-06] MEDS: ACETYLCYSTEINE 10,000 MG in D5W 1,000 ML IV ONE (08:20)
[2024-09-06 10:03] LABS: PT Prothrombin Time 16.2 SECONDS (9.4-12.5); Protime INR 1.46
[2024-09-06 10:14] LABS: Albumin 2.4 g/dL (3.4-5.0); Albumin/Globulin Ratio 0.7 (1.1-1.8); Anion Gap 12.6 mEq/L (5.0-15.0); Bilirubin Total 0.8 mg/dL (0.2-1.0); Globulin 3.4 g/dL (2.3-3.5); Magnesium 1.9 mg/dL (1.6-2.4); Phosphorus 3.6 mg/dL (2.5-4.9); Potassium 3.6 mEq/L (3.5-5.1); Protein, Total 5.8 g/dL (6.4-8.2)
[2024-09-06] MEDS: PIPER TAZO 3.375 GM in NA CHLORIDE 0.9% 100 ML IV SCH (11:41)
--- NOTE | 2024-09-06 12:34 | P.CNS ---
Date of Consult: 09/06/24 Reason for Consult: Respiratory failure overdose Chief Complaint: Overdose History of Present Illness: Patient is 69 years of age with a history of COPD patient depression with an overdose of ingesting 60 pills of Xanax and well Aflaxen patient is very conges davi she was found to be very hypotensive started on Levophed and hypoxic Allergies aspirin Allergy (Verified 10/27/16 10:51) swelling ibuprofen Allergy (Verified 10/27/16 10:51) swelling Home Medications: Alprazolam [Xanax] 0.5 mg PO TID PRN 12/12/11 Venlafaxine HCl [Effexor] 50 mg PO DAILY 12/12/11 Amlodipine Besylate 1 tab PO DAILY 09/05/24 Fenofibrate 160 mg PO DAILY 09/05/24 - Past Medical/Surgical History Diabetic: No -: COPD -: Hypertension -: Knee surgery - Family History Mother Medical History: Cancer - Social History Smoking Status: Unknown if ever smoked Alcohol use: No CD- Drugs: No Caffeine use: No Place of Residence: Home Review of Systems 10-point ROS is otherwise unremarkable General: Weakness Respiratory: Cough, Shortness of Breath Physical Examination Temp Pulse Resp BP Pulse Ox 97 F 91 H 33 H 99/57 L 96 09/06/24 03:48 09/06/24 12:00 09/06/24 12:00 09/06/24 12:00 09/06/24 12:00 General: Alert, Oriented x3 Respiratory: Diminished, Expiratory wheezes Cardiovascular: No edema, Regular rate/rhythm Laboratory Data (last 24 hrs) 09/05/24 09/05/24 09/05/24 17:30 16:35 16:35 WBC 14.70 H Hgb 12.6 Hct 38.8 Plt Count 275 PT 12.6 H INR 1.13 APTT 34.3 Sodium 141 Potassium 4.0 BUN 21 H Creatinine 1.79 H Glucose 148 H Total Bilirubin 1.3 H AST 26 ALT 17 Alkaline Phosphatase 95 - Problems (1) COPD (chronic obstructive pulmonary disease) Current Visit: No Status: Acute Plan: Patient is 69 years of age admitted with an overdose underlying COPD appears to be very congested plan for scheduled bronchodilators add steroid patient is mildly hypercapnic x-ray still shows some lower lobe infiltrate Qualifiers: COPD type: COPD with acute exacerbation Qualified Code(s): J44.1 - Chronic obstructive pulmonary disease with (acute) exacerbation
--- NOTE | 2024-09-06 12:37 | RAD REPORT ---
EXAMINATION: ONE VIEW CHEST XR CLINICAL INDICATION: tahcypnea TECHNIQUE: Frontal chest projection is submitted. Examination is limited by patient positioning and t echnique. COMPARISON: Earlier study same date FINDINGS: Mild bibasilar lung opacities are noted, slightly greater on the right, likely infiltrate/pneumonia. Findings appear slightly progressive relative to prior study. Small bilateral pleural effusions. The heart is moderately enlarged in size. Right-sided PICC line has tip in the SVC near the junction of the right atrium. IMPRESSION: Mild worsening bibasilar lung aeration since earlier study.
[2024-09-06] MEDS: METHYLPREDNISOLONE 125 MG INJ IV SCH (13:02)
[2024-09-06] MEDS: IPRATROPIUM BROM 0.5MG/2.5ML NEB SCH (13:30)
[2024-09-06] MEDS: ALBUTEROL 2.5 MG/3 ML NEB SOL NEB SCH (13:30)
[2024-09-06 15:26] LABS: Arterial Blood Carboxyhemoglob 0.7 % (0-1.5); Blood Gas Oxyhemoglobin 88.5 % (94-97); Blood Gas THB 13.3 g/dl (12-18); Blood O2 Saturation 91.1 % (92-98.5)
--- NOTE | 2024-09-06 17:39 | CON ---
Reason For Consultation: Acute Tylenol toxicity with hepatic failure. History Of Present Illness: The patient is a 69-year-old white female with history of hypertension, depression, anxiety, tobacco abuse, COPD. The patient presented to the hospital after being found do wn by family inhouse after overdose on approximately 50 Xanax tablets, 55 Zanaflex tablets, and 55 am lodipine tablets and excessive number of Tylenol tablets as well with Tylenol level in the hospital p ositive. The patient has been started on IV Mucomyst in ICU. PICC line in place. Extra peripheral IVs in place. In the field, the patient noted to have blood pressure "40/30." With resuscitation in the ER, went up to approximately 100/60. She was also hypoxic and had a pH on admission in the ER o f 7.21, so severely acidotic, and had probably been on the so I guess unconscious for quit e some time at home due to her overdose. Past Medical History: Significant for hypertension, depression, anxiety, tobacco abuse, COPD, knee s urgery. Medications: At home include ProAir, Xanax, Lipitor, Effexor, Prinivil, Tessalon Perles, budesonide, Symbicort inhaler, Levaquin, prednisone, amlodipine, and fenofibrate. Allergies: TO ASPIRIN AND IBUPROFEN. Social History: Lives at home. Positive for tobacco. Family History: Mother had cancer. Daughter of suicide approximately 20 years ago. Physical Examination: Vital Signs: The patient is in ICU in bed, 5 foot 5, 222 pounds, BMI of 37.0 kg per m2. She is afeb rile with a pulse of 93, respirations 28, blood pressure 109/40, and O2 saturation 95% to 97%. General: She is somewhat disoriented, moaning, unable to answer verbal questions well, but responsiv e to physical stimuli. HEENT: Normocephalic, atraumatic. Anicteric. Pupils equal, round, reactive to light. Extraocular movements are intact. Oropharynx is clear. Neck: Supple. No masses. Respirations: Clear to auscultation bilaterally. The patient has decreased breath sounds in the bas es. Cardiac: Regular rate and rhythm. No gallops or rubs. Abdomen: Positive bowel sounds. Soft, nontender, nondistended. No hepatosplenomegaly. Extremities: No clubbing, cyanosis. Slight lower extremity edema. Neuro: Disoriented, confused, moaning. Unable to give good history, but able to move and responds t o physical stimuli. Laboratory Data: The patient has a white count of 15.4, up from 14.7, with hemoglobin 12.5, hematocr it 39.4, MCV of 88, platelet count of 223, polys of 88%, up from 69% yesterday, lymphocytes 9%, monoc ytes 5%. The patient has a PT started at 12.6, INR of 1.1, up to PT of 16.2 today, INR of 1.46, PTT of 34.3. Blood gases, pH 7.21, pCO2 of 46, pO2 of 205, bicarb of 18, base excess of -86, oxyhemoglob in 96%, O2 saturation 98%, carboxyhemoglobin 0.2, methemoglobin of 2.3, total hemoglobin 14.5, oxygen is 100% FiO2. Sodium 141, potassium 3.6, chloride 109, bicarb 23, anion gap of 6, BUN of 24, creati nine of 1.24 down from 1.8 yesterday, glucose 109. Calcium 8.3, phosphorus 3.6, magnesium 1.9. Bili del rosario of 0.8, AST of 147, ALT of 61, alkaline phosphatase 80, total protein 5.8, albumin 2.3, globuli n 3.4. UA, 250 leukocyte esterase, 20-50 white blood cells, trace protein. Tylenol level was 90.7 a nd decreased to 60.8, both are elevated. Positive benzodiazepine on her tox screen, otherwise negati ve. Alcohol level less than 10 and she probably was drinking with elevated AST, ALT. Chest x-ray, bibasilar opacities, heart is moderately enlarged. Right lower lobe with mild infiltrat e, possible pneumonia. Trace bilateral pleural effusions. Aortic atherosclerosis. Right lower lobe demonstrates worsening moderate lung aeration, probably developing infiltrate. Aspiration is possib le since yesterday. Impression: 1.Acute hepatic failure toxicity status post overdose with Tylenol, unknown number quantity, Xanax a pproximately 50 pills, Effexor approximately 55 pills, and amlodipine approximately 55 pills. Increa sed liver numbers, increasing PT, increasing AST, ALT increasing. Indicative of acute hepatic toxici ty from overdose. The patient on IV Mucomyst. Will continue IV Mucomyst, Tylenol therapy. 2.Probable right lower lobe aspiration pneumonia. White count elevated from 14 to 15.4 with polys u p to 86% today, with sepsis. 3.Hypotension in the field, down to blood pressure 40/30, with resuscitation in the ER up to 100/60. She also had hypoxemia and a pH of 7.21 with acidemia in the body. 4.Urinary tract infection. 5.History of hypertension, depression, anxiety, tobacco abuse, COPD, knee surgery. Recommendation: 1.Continue IV Mucomyst, Tylenol toxicity protocol. 2.Check PT/INR every day and monitor liver numbers and Tylenol levels. 3.Assure good IV access. The patient has PICC line and other peripheral line in place. Maintain th is. 4.Diet as tolerated. 5.IV antibiotics. 6.Await urine culture. 7.Await blood culture. YASSINE/ART Voice ID: [id number] Report ID: [id number]
[2024-09-06 20:28] LABS: PT Prothrombin Time 17.9 SECONDS (9.4-12.5); Protime INR 1.62
[2024-09-06 20:41] LABS: Albumin 2.3 g/dL (3.4-5.0); Albumin/Globulin Ratio 0.7 (1.1-1.8); Bilirubin Direct 0.2 mg/dL (0-0.2); Bilirubin Indirect, Calculated 0.4 mg/dL (0.2-0.8); Bilirubin Total 0.6 mg/dL (0.2-1.0); Globulin 3.5 g/dL (2.3-3.5); Protein, Total 5.8 g/dL (6.4-8.2)
[2024-09-06 22:12] VITALS: BMI 36.1
[2024-09-07 05:47] LABS: PT Prothrombin Time 16.4 SECONDS (9.4-12.5); Protime INR 1.48
[2024-09-07 05:50] LABS: Absolute Lymphocytes (CBC) 0.5 K/uL (0.7-4.9); Absolute Monocytes 0.4 K/uL (0.1-1.3); Absolute Neutrophil 13.5 K/uL (1.8-8.0); Basophils % 0.1 % (0-1.3); Hematocrit 34.7 % (36.0-45.0); Hemoglobin 11.7 g/dL (12.0-15.0); Lymphocytes % 3.7 % (15.3-44.8); MCH 28.5 pg (27.0-35.0); MCHC 33.7 g/dL (32.0-36.0); MCV 84.6 fL (80-100); MPV 8.3 fL (7.6-11.3); Monocytes % 2.7 % (3.3-12.3); Neutrophils % 93.5 % (41.7-73.7); Platelets 165 thou/uL (152-406)
[2024-09-07 06:02] LABS: Albumin 2.2 g/dL (3.4-5.0); Albumin/Globulin Ratio 0.6 (1.1-1.8); Anion Gap 10.7 mEq/L (5.0-15.0); Bilirubin Total 0.5 mg/dL (0.2-1.0); Globulin 3.4 g/dL (2.3-3.5); Magnesium 1.9 mg/dL (1.6-2.4); Phosphorus 3.2 mg/dL (2.5-4.9); Potassium 3.7 mEq/L (3.5-5.1); Protein, Total 5.6 g/dL (6.4-8.2)
[2024-09-07] MEDS: KCL 20 MEQ/100 mL IVPB 20 MEQ/100 ML BAG IV SCH (06:43)
--- NOTE | 2024-09-07 08:25 | P.PN ---
Date of Service: 09/07/24 Subjective: mentation improved. Aox3. More awake/alert off levophed since early AM. BP soft, currently in 90/100s systolic thinks she might've had some blood in her urine recently at home prior to admission asking for water continues with cough ~same. afebrile ROS: 10 point ROS as noted above, otherwise negative Physical Exam: GEN: Awake, alert, oriented x3 HEENT: Normal conjunctiva, sclera anicteric CV: Regular rate and rhythm, no edema Pulm: Nonlabored respirations on 4L NC, Crackles right lung base, +cough ABD: soft, nontender, nondistended Neuro: moves all extremities, normal speech ann in place; placed 09/05 Problem List: Drug overdose with suicidal intent Aspiration pneumonia Acute hypoxic respiratory failure secondary to above Hypotension Acetaminophen overdose, improved BETTE Metabolic acidosis Suspected UTI Elevated LFTs Depression/Anxiety COPD, chronic Hypertension Drug overdose with suicidal intent Aspiration pneumonia Acute hypoxic respiratory failure secondary to above Hypotension Found unresponsive by family at home. Brought in by EMS for suspected intentional overdose with suicidal intent 40-50 xanax tabs, ~55 Venlafaxine tabs, ~55 amlodipine tablets are all mi ssing per family. Also reports taking unknown amount of tylenol reportedly found to be hypotensive in ED 40/30s. Given IVF and started on levophed drip. BP improving/stable; off levophed overnight Poison control contacted and is following s/p acetylcysteine; dc'd 09/06 CXR (09/06): worsening RLL aeration with probable developing infiltrate. Possible Aspiration repeat CXR (09/07): with no significant change, stable findings. Aspiration precautions. more alert, antiicpate will pass bedside swallow, advance as tolerated if does pass bedside swallow continue empiric zosyn (09/06-) will cover PNA and also covers urine patient with SIRS criteria and hypotensive / shock - secondary to drug overdose/toxicity denies having any infectious symptoms / UTI symptoms prior to ingesting med ication vitals and labs more of a result of drug overdose, and not sepsis however, did aspirate while on bipap / vomited last night, so abx added urine cx grew E. coli; resulted 09/07 Acetaminophen overdose, improved Acetaminophen levels 90.7 on admission. Tylenol levels improved s/p acetylcysteine; dc'd 09/06 BETTE Metabolic acidosis given IVF and bicarb in ED ; improved continue IV fluids continue to monitor renal function Monitor and replete electrolytes Suspected UTI UA with +LE, +WBC Patient thinks she might've had some blood in her urine recently at home prior to admission denies symptoms currently, may be asymptomatic bacteruria urine cx (09/05): E. coli follow blood cultures afebrile, +leukocytosis continue zosyn (09/06-) Elevated LFTs, mild likely secondary to hypotension vs tylenol toxicity T. bili 1.1 / AST 148 on admission Trend LFTs - improving GI consulted Depression/Anxiety COPD, chronic Hypertension confirm home meds VTE: SCD Code: Full Continue ICU level of care family updated 09/06 possible downgrade in next ~24hrs Time Spent Managing Pts Care (In Minutes): 57
--- NOTE | 2024-09-07 08:38 | RAD REPORT ---
EXAMINATION: ONE VIEW CHEST XR CLINICAL INDICATION: Female, 69 years old.,COPD TECHNIQUE: Frontal chest projection is submitted. Examination is limited by patient positioning and t echnique. COMPARISON: 09/06/2024 FINDINGS: Bilateral central interstitial prominence and central to basal fluffy opacities with layering effusio ns, stable, and most suggestive of pulmonary edema. Underlying pneumonia cannot be entirely excluded. Right arm PICC unchanged in position. No pneumothorax. The heart is normal in size. Medias tinal contours are unremarkable. IMPRESSION: Stable findings as above.
[2024-09-07] MEDS ORDERED: ALBUTEROL 2.5 MG/3 ML NEB SOL NEB PRN (12:09)
--- NOTE | 2024-09-07 12:12 | P.PN ---
Subjective Date of Service: 09/07/24 Chief Complaint: COPD/overdose Subjective: Improving (Is improving doing much better more alert responsive denies any shortness of breath) Review of Systems Unremarkable Physical Examination - Vital Signs Temperature: 97.4 F Blood Pressure: 99/53 Pulse: 76 Respirations: 23 Pulse Ox (%): 94 - Physical Exam General: Alert, Oriented x3 Respiratory: Clear to auscultation bilaterally, Diminished Cardiovascular: No edema, Regular rate/rhythm, Normal S1 S2 - Studies Microbiology Data (last 24 hrs): 09/05/24 16:40 Catheterized Urine Sharon Count - Final >100,000 CFU/ML. 09/05/24 16:40 Catheterized Urine - Final Escherichia Coli Assessment And Plan - Current Problems (Diagnosis) (1) COPD (chronic obstructive pulmonary disease) Current Visit: No Status: Acute Plan: Patient is doing much better chest sounds better no wheezing or rhonchi changed to p.o. prednisone scheduled Brovana nebulized patient is now eating and drinking liver function tests have improved serum acetaminophen levels were elevated and is on acetylcysteine E. coli in the urine changed to p.o. levofloxacin stable to be transferred to the floor patient expressed suicidal ideation Qualifiers: COPD type: COPD with acute exacerbation Qualified Code(s): J44.1 - Chronic obstructive pulmonary disease with (acute) exacerbation
[2024-09-07] MEDS: levoFLOXacin 500 MG TAB PO SCH (12:20)
[2024-09-07] MEDS ORDERED: AMOX/K CLAV 875 MG TAB PO SCH (17:00)
[2024-09-07] MEDS: ARFORMOTEROL TARTRATE 15 MCG/2 ML VIAL.NEB NEB SCH (21:06)
[2024-09-07] MEDS: predniSONE 20 MG TAB PO SCH (21:43)
[2024-09-07] MEDS: DULERA 200/5 (MOMETASONE/FORMOTEROL) INHALER IH SCH (22:00)
[2024-09-07 22:25] LABS: ALT/SGPT 61 U/L (13-56); AST/SGOT 102 U/L (15-37); Albumin 2.3 g/dL (3.4-5.0); Albumin/Globulin Ratio 0.7 (1.1-1.8); Alkaline Phosphatase 69 U/L (45-117); Bilirubin Direct < 0.2 mg/dL (0-0.2); Bilirubin Indirect, Calculated 0.2 mg/dL (0.2-0.8); Bilirubin Total 0.4 mg/dL (0.2-1.0); Globulin 3.4 g/dL (2.3-3.5); Protein, Total 5.7 g/dL (6.4-8.2)
[2024-09-08 05:22] LABS: Absolute Lymphocytes (CBC) 0.3 K/uL (0.7-4.9); Absolute Monocytes 0.4 K/uL (0.1-1.3); Absolute Neutrophil 7.5 K/uL (1.8-8.0); Basophils % 0.1 % (0-1.3); Hematocrit 31.1 % (36.0-45.0); Hemoglobin 10.3 g/dL (12.0-15.0); Lymphocytes % 3.8 % (15.3-44.8); MCH 28.2 pg (27.0-35.0); MCHC 33.1 g/dL (32.0-36.0); MCV 85.2 fL (80-100); MPV 8.5 fL (7.6-11.3); Monocytes % 4.6 % (3.3-12.3); Nucleated Red Blood Cells % 0.1 % (0-0); Platelets 137 thou/uL (152-406); RBC Red Blood Cell Count 3.65 M/uL (3.86-4.86); Red Cell Distribution Width 14.9 % (12.1-15.2)
[2024-09-08 05:30] LABS: Neutrophils % 91.5 % (41.7-73.7)
[2024-09-08 05:44] LABS: PT Prothrombin Time 13.1 SECONDS (9.4-12.5); Protime INR 1.18
[2024-09-08 08:37] LABS: Albumin 2.3 g/dL (3.4-5.0); Albumin/Globulin Ratio 0.7 (1.1-1.8); Anion Gap 5.8 mEq/L (5.0-15.0); Bilirubin Total 0.4 mg/dL (0.2-1.0); Globulin 3.2 g/dL (2.3-3.5); Magnesium 2.1 mg/dL (1.6-2.4); Phosphorus 1.8 mg/dL (2.5-4.9); Potassium 3.8 mEq/L (3.5-5.1); Protein, Total 5.5 g/dL (6.4-8.2)
--- NOTE | 2024-09-08 08:49 | RAD REPORT ---
EXAMINATION: ONE VIEW CHEST XR CLINICAL INDICATION: Female, 69 years old.,COPD TECHNIQUE: Frontal chest projection is submitted. Examination is limited by patient positioning and t echnique. COMPARISON: 09/07/2024 FINDINGS: Stable right arm PICC positioning. Stable perihilar fluffy opacities, interstitial prominence, and la yering effusions, most concerning for pulmonary edema. No pneumothorax. The heart is normal in size. Mediastinal contours are unremarkable. IMPRESSION: Stable findings as above.
[2024-09-08] MEDS: POTASSIUM PHOS IN 0.9 % NACL 15 MMOL/250 ML BAG IV ONE (10:59)
--- NOTE | 2024-09-08 11:15 | P.PN ---
Date of Service: 09/08/24 Subjective: Feeling better overall. awake, alert. tolerating diet. denies any chest pain afebrile denies any suicidal ideations at this time. States she was thinking stupidly, and was upset with recently getting scammed ROS: 10 point ROS as noted above, otherwise negative Physical Exam: GEN: Awake, alert, oriented x3 HEENT: Normal conjunctiva, sclera anicteric CV: Regular rate and rhythm, no edema Pulm: Nonlabored respirations on 4L NC, Crackles right lung base, +cough ABD: soft, nontender, nondistended Neuro: moves all extremities, normal speech ann in place; placed 09/05 Problem List: Drug overdose with suicidal intent Aspiration pneumonia Acute hypoxic respiratory failure secondary to above Hypotension Acetaminophen overdose, improved BTETE, resolved Metabolic acidosis Suspected UTI Elevated LFTs, mild; improving Depression/Anxiety COPD, chronic Hypertension Drug overdose with suicidal intent Aspiration pneumonia Acute hypoxic respiratory failure secondary to above Hypotension Found unresponsive by family at home. Brought in by EMS for suspected intentional overdose with suicidal intent 40-50 xanax tabs, ~55 Venlafaxine tabs, ~55 amlodipine tablets are all missing per family. Also reports taking unknown amount of tylenol reportedly found to be hypotensive in ED 40/30s. Given IVF and started on levophed drip. BP improving/stable; off levophed since 08/28 am Poison control contacted and is following s/p acetylcysteine; dc'd 09/06 CXR (09/06): worsening RLL aeration with probable developing infiltrate. Possible Aspiration repeat CXR 09/07 and 09/08 both with no significant change, stable findings. Aspiration precautions. more alert, passed bedside swallow 08/28. Diet advanced - tolerating without issues zosyn (09/06-09/07) deescalated to oral levaquin 09/07 continue empiric levaquin (09/07-) Acetaminophen overdose, improved Acetaminophen levels 90.7 on admission. Tylenol levels improved s/p acetylcysteine; dc'd 09/06 BETTE, resolved Metabolic acidosis given IVF and bicarb in ED; improved continue IV fluids continue to monitor renal function Monitor and replete electrolytes Suspected UTI UA with +LE, +WBC Patient thinks she might've had some blood in her urine recently at home prior to admission denies symptoms currently, may be asymptomatic bacteruria urine cx (09/05): E. coli Blood cx (09/05): NGTD zosyn (09/06-09/07) deescalated to oral levaquin 09/07 Elevated LFTs, mild; improving likely secondary to hypotension vs tylenol toxicity T. bili 1.1 / AST 148 on admission Trend LFTs - improving GI consulted Depression/Anxiety COPD, chronic Hypertension confirm home meds VTE: SCD Code: Full Likely downgrade today Time Spent Managing Pts Care (In Minutes): 51
--- NOTE | 2024-09-08 18:01 | P.PN ---
Subjective Date of Service: 09/08/24 Chief Complaint: COPD/overdose with Tylenol / Xanax / Effexor / Amlodipine OD. Subjective: Improving (Feels much better with 3 family members at bedside. Liver numbers much improved - has completed Tylenol toxicity IV Mucomyst successfully. Tylenol level down from 60.8 to <2.5 now. AST/ALT 154/89 to 86/57, PT/INR 16.2/1.5 to 13.1/1.2) Review of Systems 10-point ROS is otherwise unremarkable General: Weakness (Improving.), Malaise (Improving.) Gastrointestinal: Abdominal Pain (Improving.) Physical Examination - Vital Signs Temperature: 97.2 F Blood Pressure: 107/57 Pulse: 77 Respirations: 18 Pulse Ox (%): 95 - Physical Exam General: Alert, In no apparent distress, Oriented x3, Cooperative HEENT: Atraumatic, Normocephalic, PERRLA, EOMI, Sclerae nonicteric Neck: Supple Respiratory: Normal air movement Cardiovascular: Regular rate/rhythm Gastrointestinal: Soft and benign, No tenderness, No rebound, No guarding Neurological: Normal speech, Normal strength at 5/5 x4 extr Assessment And Plan - Current Problems (Diagnosis) (1) Hepatic failure Current Visit: Yes Status: Acute (2) Tylenol toxicity Current Visit: Yes Status: Acute (3) Abnormal liver function tests Current Visit: Yes Status: Acute (4) Depression with anxiety Current Visit: No Status: Chronic (5) Tobacco abuse Current Visit: No Status: Chronic - Plan REC: 1) cardiac / heart healthy diet 2) psychiatry follow-up outpatient 3) social to assist family with modalities to help patient with mental health
[2024-09-08] MEDS: predniSONE 10 MG TAB PO SCH (22:43)
[2024-09-09 05:38] LABS: Absolute Lymphocytes (CBC) 0.5 K/uL (0.7-4.9); Absolute Monocytes 0.4 K/uL (0.1-1.3); Absolute Neutrophil 8.4 K/uL (1.8-8.0); Basophils % 0.2 % (0-1.3); Eosinophils % 0.4 % (0-4.4); Hemoglobin 11.8 g/dL (12.0-15.0); MCHC 32.7 g/dL (32.0-36.0); MCV 85.5 fL (80-100); MPV 8.6 fL (7.6-11.3); Monocytes % 4.7 % (3.3-12.3); Neutrophils % 89.7 % (41.7-73.7); Nucleated Red Blood Cells % 0.1 % (0-0); PT Prothrombin Time 12.8 SECONDS (9.4-12.5); Platelets 183 thou/uL (152-406); Protime INR 1.15; RBC Red Blood Cell Count 4.21 M/uL (3.86-4.86); Red Cell Distribution Width 14.9 % (12.1-15.2)
[2024-09-09 05:51] LABS: Albumin 2.5 g/dL (3.4-5.0); Albumin/Globulin Ratio 0.7 (1.1-1.8); Anion Gap 6.6 mEq/L (5.0-15.0); Bilirubin Total 0.4 mg/dL (0.2-1.0); Globulin 3.7 g/dL (2.3-3.5); Phosphorus 2.2 mg/dL (2.5-4.9); Potassium 3.6 mEq/L (3.5-5.1); Protein, Total 6.2 g/dL (6.4-8.2)
[2024-09-09 08:30] LABS: Blood Morphology Comment NOT SEEN (NOT SEEN); Platelet Estimate ADEQ; White Blood Cell Scan OK (OK)
[2024-09-09] MEDS ORDERED: VENLAFAXINE HCL 50 MG TABLET PO SCH (09:00)
[2024-09-09] MEDS: POTASS/SODIUM PHOSPHATE 1 PKT POWD.PACK PO SCH (09:43)
[2024-09-09] MEDS: VENLAFAXINE HCL XR 37.5MG CAP PO SCH (09:44)
[2024-09-09] MEDS: FENOFIBRATE 160 MG TAB PO SCH (09:44)
--- NOTE | 2024-09-09 11:45 | P.PN ---
Date of Service: 09/09/24 Subjective: no acute events overnight feeling better each day still on 2L NCj, breathing improving denies suicidal ideations -becomes teary eyed when discussing event. ROS: 10 point ROS as noted above, otherwise negative Physical Exam: GEN: Awake, alert, oriented x3 CV: Regular rate and rhythm, no edema Pulm: Non-labored respirations on 2L NC, mild crackles right lung base, +cough ABD: soft, nontender, nondistended Neuro: moves all extremities, normal speech Problem List: Drug overdose with suicidal intent Aspiration pneumonia Acute hypoxic respiratory failure secondary to above Hypotension Acetaminophen overdose, improved BETTE, resolved Metabolic acidosis Suspected UTI Elevated LFTs, mild; improving Depression/Anxiety COPD, chronic Hypertension Drug overdose with suicidal intent Aspiration pneumonia Acute hypoxic respiratory failure secondary to above Hypotension Found unresponsive by family at home. Brought in by EMS for suspected intentional overdose with suicidal intent 40-50 xanax tabs, ~55 Venlafaxine tabs, ~55 amlodipine tablets are all missing per family. Also reports taking unknown amount of tylenol reportedly found to be hypotensive in ED 40/30s. Given IVF and started on levophed drip. BP improving/stable; off levophed since 08/28 am Poison control contacted and is following s/p acetylcysteine; dc'd 09/06 CXR (09/06): worsening RLL aeration with probable developing infiltrate. Possible Aspiration repeat CXR 09/07 and 09/08 both with no significant change, stable findings. Aspiration precautions. more alert, passed bedside swallow 08/28. Diet advanced - tolerating without issues zosyn (09/06-09/07) deescalated to oral levaquin 09/07 continue levaquin (09/07-) denies any suicidal ideations at this time. States she was thinking stupidly, and was upset with recently getting scammed contact [facility] to [facility] for possible inpatient psych Acetaminophen overdose, improved Acetaminophen levels 90.7 on admission. Tylenol levels improved s/p acetylcysteine; dc'd 09/06 BETTE, resolved Metabolic acidosis given IVF and bicarb in ED; improved continue IV fluids continue to monitor renal function Monitor and replete electrolytes Suspected UTI UA with +LE, +WBC Patient thinks she might've had some blood in her urine recently at home prior to admission denies symptoms currently, may be asymptomatic bacteruria urine cx (09/05): E. coli Blood cx (09/05): NGTD zosyn (09/06-09/07) deescalated to oral levaquin 09/07 Elevated LFTs, mild; improving likely secondary to hypotension vs tylenol toxicity T. bili 1.1 / AST 148 on admission Trend LFTs - improving GI consulted Depression/Anxiety COPD, chronic Hypertension confirm home meds VTE: SCD Code: Full contact [facility] to [facility] for possible inpatient psych Time Spent Managing Pts Care (In Minutes): 47
--- NOTE | 2024-09-09 14:27 | P.PN ---
Subjective Date of Service: 09/09/24 Chief Complaint: COPD/overdose with Tylenol / Xanax / Effexor / Amlodipine OD. Subjective: Improving (Feels well and is without complaint.) Review of Systems 10-point ROS is otherwise unremarkable General: Weakness (Improved.), Malaise (Improved.) Physical Examination - Vital Signs Temperature: 97.0 F Blood Pressure: 113/70 Pulse: 84 Respirations: 16 Pulse Ox (%): 96 - Physical Exam General: Alert, In no apparent distress, Oriented x3, Cooperative HEENT: Atraumatic, Normocephalic, PERRLA, EOMI Neck: Supple Respiratory: Normal air movement Cardiovascular: Regular rate/rhythm Gastrointestinal: Soft and benign, No tenderness, No rebound, No guarding Neurological: Normal speech, Normal strength at 5/5 x4 extr Assessment And Plan - Current Problems (Diagnosis) (1) Hepatic failure Current Visit: Yes Status: Acute (2) Tylenol toxicity Current Visit: Yes Status: Acute (3) Abnormal liver function tests Current Visit: Yes Status: Acute (4) Depression with anxiety Current Visit: No Status: Chronic (5) Tobacco abuse Current Visit: No Status: Chronic - Plan REC: 1) cardiac / heart healthy diet 2) psychiatry follow-up outpatient 3) social to assist family with modalities to help patient with mental health
[2024-09-09] MEDS: PANTOPRAZOLE 40MG TABLET PO SCH (17:39)
[2024-09-10 07:20] LABS: Albumin 2.5 g/dL (3.4-5.0); Albumin/Globulin Ratio 0.7 (1.1-1.8); Anion Gap 6.7 mEq/L (5.0-15.0); Bilirubin Total 0.5 mg/dL (0.2-1.0); Globulin 3.5 g/dL (2.3-3.5); Potassium 3.7 mEq/L (3.5-5.1)
[2024-09-10] MEDS ORDERED: POLYETHYL GLY 3350 17 GM/DOSE PO PRN (09:25)
--- NOTE | 2024-09-10 09:25 | P.PN ---
Date of Service: 09/10/24 Subjective: Breathing feels easier today, oxygen requirements slowly improving doesn't feel anything is worse. no events overnight no BM for several days, but passing gas appetite improving afebrile ROS: 10 point ROS as noted above, otherwise negative Physical Exam: GEN: Awake, alert, oriented x3 CV: Regular rate and rhythm, no edema Pulm: Non-labored respirations on 2L NC, mild crackles right lung base, +cough ABD: soft, nontender, nondistended Neuro: moves all extremities, normal speech Problem List: Drug overdose with suicidal intent Aspiration pneumonia Acute hypoxic respiratory failure secondary to above Hypotension Acetaminophen overdose, improved BETTE, resolved Metabolic acidosis Suspected UTI Elevated LFTs, mild; resolved Constipation Depression/Anxiety COPD, chronic Hypertension GERD / Hx olson's esophagus Drug overdose with suicidal intent Aspiration pneumonia Acute hypoxic respiratory failure secondary to above Hypotension Found unresponsive by family at home. Brought in by EMS for suspected intentional overdose with suicidal intent 40-50 xanax tabs, ~55 Venlafaxine tabs, ~55 amlodipine tablets are all missing per family. Also reports taking unknown amount of tylenol reportedly found to be hypotensive in ED 40/30s. Given IVF and started on levophed drip. BP improving/stable; off levophed since 08/28 am Poison control contacted and is following s/p acetylcysteine; dc'd 09/06 CXR (09/06): worsening RLL aeration with probable developing infiltrate. Possible Aspiration repeat CXR 09/07 and 09/08 both with no significant change, stable findings. Aspiration precautions. more alert, passed bedside swallow 08/28. Diet advanced - tolerating without issues zosyn (09/06-09/07) deescalated to oral levaquin 09/07 continue levaquin (09/07-) denies any suicidal ideations at this time. States she was thinking stupidly, and was upset with recently getting scammed [facility] consulted 09/09; Recommended inpatient psych. Acetaminophen overdose, improved Acetaminophen levels 90.7 on admission. Tylenol levels improved s/p acetylcysteine; dc'd 09/06 BETTE, resolved Metabolic acidosis given IVF and bicarb in ED; improved continue to monitor renal function Monitor and replete electrolytes Suspected UTI UA with +LE, +WBC Patient thinks she might've had some blood in her urine recently at home prior to admission denies symptoms currently, may be asymptomatic bacteruria urine cx (09/05): E. coli Blood cx (09/05): NGTD zosyn (09/06-09/07) deescalated to oral levaquin 09/07 Elevated LFTs, mild; resolved likely secondary to hypotension vs tylenol toxicity T. bili 1.1 / AST 148 on admission Trend LFTs - improving GI consulted Constipation no BM for several days. +flatus colace, miralax added 09/10 encouraged to get out of bed, ambulate to help stimulate intestines Depression/Anxiety COPD, chronic Hypertension GERD / Hx olson's esophagus confirm home meds Protonix added VTE: SCD Code: Full [facility] consulted 09/09; Recommended inpatient psych. Although she has good support system, [facility] felt patient still exhibited poor coping mechanisms, with multiple triggers / suicide attempts and felt would not be safe to go home. Time Spent Managing Pts Care (In Minutes): 47
[2024-09-10] MEDS: POTASSIUM CL SA 10 MEQ TAB PO ONE (09:33)
[2024-09-10] MEDS: DOCUSATE NA 100 MG CAP PO SCH (09:33)
--- NOTE | 2024-09-11 10:00 | P.PN ---
Date of Service: 09/11/24 Subjective: desat yesterday to 80s when getting OOB to ambulate, use restroom takes a few minutes to catch her breath afterwards sats 89-90% on RA this morning when ambulating to restroom feels her strength is returning denies any suicidal ideations ROS: 10 point ROS as noted above, otherwise negative Physical Exam: GEN: Awake, alert, oriented x3 CV: Regular rate and rhythm, no edema Pulm: Non-labored respirations on 1L NC, mild crackles right lung base, +cough ABD: soft, nontender, nondistended Neuro: moves all extremities, normal speech Problem List: Drug overdose with suicidal intent Aspiration pneumonia Acute hypoxic respiratory failure secondary to above Hypotension Acetaminophen overdose, improved BETTE, resolved Metabolic acidosis UTI Elevated LFTs, mild; resolved Constipation Depression/Anxiety COPD, chronic Hypertension GERD / Hx olson's esophagus Drug overdose with suicidal intent Aspiration pneumonia Acute hypoxic respiratory failure secondary to above Hypotension Found unresponsive by family at home. Brought in by EMS for suspected intentional overdose with suicidal intent 40-50 xanax tabs, ~55 Venlafaxine tabs, ~55 amlodipine tablets are all missing per family. Also reports taking unknown amount of tylenol reportedly found to be hypotensive in ED 40/30s. Given IVF and started on levophed drip. (off since 08/28 AM) s/p acetylcysteine; dc'd 09/06 CXR (09/06): worsening RLL aeration with probable developing infiltrate. Possible Aspiration repeat CXR 09/07 and 09/08 both with no significant change, stable findings. repeat CXR 09/11 to re-eval, f/u opacities Aspiration precautions. more alert, passed bedside swallow 08/28. Diet advanced - tolerating without issues s/p zosyn (09/06-09/07) and oral levaquin (09/07-09/11) denies any suicidal ideations at this time. States she was thinking stupidly, and was upset with recently getting scammed [facility] consulted 09/09; Recommended inpatient psych. stable Acetaminophen overdose, improved Acetaminophen levels 90.7 on admission. Tylenol levels improved s/p acetylcysteine; dc'd 09/06 BETTE, resolved Metabolic acidosis given IVF and bicarb in ED; improved continue to monitor renal function Monitor and replete electrolytes UTI UA with +LE, +WBC ; without sepsis Patient thinks she might've had some blood in her urine recently at home prior to admission denies symptoms currently, may be asymptomatic bacteruria urine cx (09/05): E. coli Blood cx (09/05): NGTD s/p zosyn (09/06-09/07) and oral levaquin (09/07-09/11) completed ~5 days of abx Elevated LFTs, mild; resolved likely secondary to hypotension vs tylenol toxicity T. bili 1.1 / AST 148 on admission LFTs improved GI consulted Constipation colace, miralax added 09/10 encouraged to get out of bed, ambulate to help stimulate intestines had BM 09/10 per chart Depression/Anxiety COPD, chronic Hypertension GERD / Hx olson's esophagus confirm home meds Protonix added 09/09 VTE: SCD Code: Full [facility] consulted 09/09; Recommended inpatient psych. Although she has good support system, [facility] felt patient still exhibited poor coping mechanisms, with multiple triggers / suicide attempts and felt would not be safe to go home. patient medically stable only requiring intermittent oxygen. She is restarting her home trelegy today Time Spent Managing Pts Care (In Minutes): 47
--- NOTE | 2024-09-11 11:42 | RAD REPORT ---
Procedure: Chest Single View HISTORY: Chest pain COMPARISON: September 07, 2024 FINDINGS: Left basilar opacities have mostly resolved Mild improvement in right basilar opacities. Upper lobes are clear Heart is mildly enlarged. PICC line in place. IMPRESSION: Significant improvement in left basilar opacities Mild improvement in right basilar opacities which may represent a combination of pleural effusion and atelectasis/infiltrate/pulmonary edema
--- NOTE | 2024-09-11 12:14 | EKG ---
Test Date: 2024-09-05 Test Time: 16:30:11 Pillowcase Cleaner: DEANNA MEASUREMENT RESULTS: Intervals: Rate: 68 RI: 194 QRSD: 150 QT: 474 QTc: 504 [place]: P: 49 RI: 194 QRS: 22 T: 55 INTERPRETIVE STATEMENTS: Normal sinus rhythm with sinus arrhythmia Right bundle branch block Abnormal ECG Compared to ECG 09/27/2023 20:07:42 No significant changes Electronically Signed On 09-11-24 12:06:24 SECURITY OFFICER by Lamonte Eng
--- NOTE | 2024-09-11 16:44 | P.PN ---
Subjective Date of Service: 09/11/24 Chief Complaint: COPD/overdose with Tylenol / Xanax / Effexor / Amlodipine OD. Subjective: Improving (Doing well no complaints. No congestion) Review of Systems Unremarkable Physical Examination - Vital Signs Temperature: 97.8 F Blood Pressure: 136/74 Pulse: 89 Respirations: 16 Pulse Ox (%): 96 - Physical Exam General: Alert, Oriented x3 Respiratory: Clear to auscultation bilaterally Cardiovascular: No edema, Regular rate/rhythm Assessment And Plan - Current Problems (Diagnosis) (1) COPD (chronic obstructive pulmonary disease) Current Visit: No Status: Acute Plan: Doign well complaint. No O2 needs Pt has Trelegy at home / labs chem revieed. Stable for discharge Qualifiers: COPD type: COPD with acute exacerbation Qualified Code(s): J44.1 - Chronic obstructive pulmonary disease with (acute) exacerbation
[2024-09-11 22:55] VITALS: O2SAT 94
[2024-09-12] MEDS: PANTOPRAZOLE 40MG TABLET PO SCH (05:39)
[2024-09-12 06:04] LABS: Hematocrit 36.8 % (36.0-45.0); Hemoglobin 12.5 g/dL (12.0-15.0); MCH 28.7 pg (27.0-35.0); MCHC 33.9 g/dL (32.0-36.0); MCV 84.5 fL (80-100); MPV 7.8 fL (7.6-11.3); Platelets 174 thou/uL (152-406); RBC Red Blood Cell Count 4.36 M/uL (3.86-4.86); Red Cell Distribution Width 14.9 % (12.1-15.2)
[2024-09-12 06:18] LABS: Anion Gap 10.4 mEq/L (5.0-15.0); Magnesium 1.9 mg/dL (1.6-2.4); Phosphorus 3.3 mg/dL (2.5-4.9); Potassium 3.4 mEq/L (3.5-5.1)
[2024-09-12] MEDS: POTASSIUM CL SA 10 MEQ TAB PO ONE (08:59)
[2024-09-12] MEDS ORDERED: Fluticasone/Umeclidin/Vilanter [Trelegy Ellipta 200-62.5-25] Blst.W.Dev *PT OWN MED IH SCH (09:00)
[2024-09-12 10:58] VITALS: BP 143/80; TEMP 97.6
--- NOTE | 2024-09-12 13:03 | P.DS ---
Admission Date: 09/05/24 Discharge Date: 09/12/24 Disposition: TRANSFR TO OTHER-PSY/CD/REHAB Discharge Condition: FAIR Reason for Admission: COPD/overdose with Tylenol / Xanax / Effexor / Amlodipine OD. Brief History of Present Illness: 69 yrs old Female with past medical history of COPD, hypertension, depression, anxiety who was brought to ER with overdosage. Patient was drowsy at the time of interview and could not provide any history. She was brought to the Emergency Department after ingesting Xanax (0.5 mg) and Venlafaxine pills. EMS reported this was an intentional overdose with suicidal intent. Patient was assessed in the ER and noted to be hypotensive with BP down to 40/30 mmHg and had fluid resuscitation and was started on Levophed. She was also found to be hypoxic and was placed on oxygen supplementation. Family member reported approximately 55 tablets of venlafaxine, 42 tablets of Xanax as well as 55 tablets of amlodipine were missing. Hospital Course: Patient was admitted to the medical floor and the following medical problems addressed: Diagnosis Drug overdose with suicidal intent Aspiration pneumonia Acute hypoxic respiratory failure secondary to above Hypotension Acetaminophen overdose, improved BETTE, resolved Metabolic acidosis UTI Elevated LFTs, mild; resolved Constipation Depression/Anxiety COPD, chronic Hypertension GERD / Hx olson's esophagus Drug overdose with suicidal intent Aspiration pneumonia Acute hypoxic respiratory failure secondary to above Hypotension Found unresponsive by family at home. Brought in by EMS for suspected intentional overdose with suicidal intent 40-50 xanax tabs, ~55 Venlafaxine tabs, ~55 amlodipine tablets are all missing per family. Patient also reported taking unknown amount of tylenol s/p acetylcysteine; dc'd 09/06 CXR (09/06): worsening RLL aeration with probable developing infiltrate. Possible Aspiration repeat CXR 09/07 and 09/08 both with no significant change, stable findings. Patient passed bedside swallow 08/28 after she became more alert. Diet advanced and she tolerated it with no issues. Patient treated s/p zosyn (09/06-09/07) for aspiration pneumonia and transition to oral levaquin (09/07-09/11) Patient denies any suicidal ideations at this time. [facility] evaluated patient and recommended inpatient psych. Patient accepted to inpatient psych She is stable for transfer. Acetaminophen overdose, improved Acetaminophen levels 90.7 on admission. Tylenol levels improved s/p acetylcysteine. BETTE, resolved Metabolic acidosis given IVF and bicarb in ED; improved Resolved UTI UA with +LE, +WBC ; without sepsis urine cx (09/05): E. coli Blood cx (09/05): NGTD s/p zosyn (09/06-09/07) and oral levaquin (09/07-09/11) Patient completed completed 5 days of antibiotics Elevated LFTs, mild; resolved likely secondary to hypotension vs tylenol toxicity T. bili 1.1 / AST 148 on admission LFTs improved Constipation Managed with colace, miralax added 09/10 Depression/Anxiety COPD, chronic Hypertension GERD / Hx olson's esophagus Venlafaxine resumed. Patient slated for inpatient psych. Vital Signs/Physical Exam: Temp Pulse Resp BP Pulse Ox 97.6 F 91 H 18 143/80 H 97 09/12/24 10:57 09/12/24 10:57 09/12/24 10:57 09/12/24 10:57 09/12/24 10:57 General: Alert, In no apparent distress, Oriented x3 HEENT: Mucous membr. moist/pink Neck: Supple, JVD not distended Respiratory: Clear to auscultation bilaterally, Normal air movement Cardiovascular: No edema, Regular rate/rhythm, Normal S1 S2 Gastrointestinal: Normal bowel sounds, Soft and benign, Non-distended Musculoskeletal: No swelling Integumentary: No rashes Neurological: Normal strength at 5/5 x4 extr Laboratory Data at Discharge: WBC 10.60 thou/uL (4.3-10.9) 09/12/24 05:41 Hgb 12.5 g/dL (12.0-15.0) 09/12/24 05:41 Hct 36.8 % (36.0-45.0) 09/12/24 05:41 Plt Count 174 thou/uL (152-406) 09/12/24 05:41 PT 12.8 SECONDS (9.4-12.5) H 09/09/24 05:10 INR 1.15 09/09/24 05:10 APTT 34.3 SECONDS (24.3-36.9) 09/05/24 17:30 Sodium 143 mEq/L (136-145) 09/12/24 05:41 Potassium 3.4 mEq/L (3.5-5.1) L 09/12/24 05:41 BUN 33 mg/dL (7-18) H 09/12/24 05:41 Creatinine 0.56 mg/dL (0.55-1.02) 09/12/24 05:41 Glucose 84 mg/dL (74-106) 09/12/24 05:41 Phosphorus 3.3 mg/dL (2.5-4.9) 09/12/24 05:41 Magnesium 1.9 mg/dL (1.6-2.4) 09/12/24 05:41 Total Bilirubin 0.5 mg/dL (0.2-1.0) 09/10/24 06:40 AST 30 U/L (15-37) 09/10/24 06:40 ALT 47 U/L (13-56) 09/10/24 06:40 Alkaline Phosphatase 77 U/L (45-117) 09/10/24 06:40 Home Medications: Alprazolam [Xanax] 0.5 mg PO TID PRN 12/12/11 Amlodipine Besylate 1 tab PO DAILY 09/05/24 Fenofibrate 160 mg PO DAILY 09/05/24 Omeprazole [Prilosec] 40 mg PO BEDTIME 09/09/24 Fluticasone/Umeclidin/Vilanter [Trelegy Ellipta 200-62.5-25] 1 puff IH DAILY 09/11/24 Docusate [Colace Cap*] 100 mg PO BID cap 09/12/24 Polyethyl Gly 3350 [Glycolax*] 17 gm PO DAILY PRN udbot 09/12/24 Venlafaxine HCl *Xr* [Effexor XR*] 37.5 mg PO DAILY cap 09/12/24 Diet: AHA Activity: Ad christy Followup: Nii Huddleston MD [Primary Care Provider] - Time spent managing pt's care (in minutes): 39
== END 2024-09-12 11:40 | DRG 917 ==
LOC: ER 16:12 → ERHOLD 20:08 → 3RD-ICU 20:47 → 2ND 09-08 14:55
PROVIDERS: ADMIT Family Medicine; ATTEND Internal Medicine
PROC: 4A033R1 Measurement of Arterial Saturation, Peripheral, Percutaneous Approach (ICD-10-PCS; principal; 2024-09-05)
PROC: 02HV33Z Insertion of Infusion Device into Superior Vena Cava, Percutaneous Approach (ICD-10-PCS; 2024-09-05)
PROC: 5A09357 Assistance with Respiratory Ventilation, Less than 24 Consecutive Hours, Continuous Positive Airway Pressure (ICD-10-PCS; 2024-09-06)
PROC: 3E033XZ Introduction of Vasopressor into Peripheral Vein, Percutaneous Approach (ICD-10-PCS; 2024-09-06)
DX: T42.4X2A Poisoning by benzodiazepines, intentional self-harm, initial encounter (principal); J69.0 Pneumonitis due to inhalation of food and vomit; J96.01 Acute respiratory failure with hypoxia; R57.8 Other shock; N17.9 Acute kidney failure, unspecified; N39.0 Urinary tract infection, site not specified; J44.1 Chronic obstructive pulmonary disease with (acute) exacerbation; I10 Essential (primary) hypertension; F41.8 Other specified anxiety disorders; K59.00 Constipation, unspecified; I95.9 Hypotension, unspecified; K21.9 Gastro-esophageal reflux disease without esophagitis; K71.10 Toxic liver disease with hepatic necrosis, without coma; T39.1X5A Adverse effect of 4-Aminophenol derivatives, initial encounter; B96.20 Unspecified Escherichia coli [E. coli] as the cause of diseases classified elsewhere; R79.89 Other specified abnormal findings of blood chemistry; Z88.8 Allergy status to other drugs, medicaments and biological substances; Z79.82 Long term (current) use of aspirin; Z79.52 Long term (current) use of systemic steroids; Z79.899 Other long term (current) drug therapy
CPT/HCPCS: 36415; 36569; 36600; 51702; 70450; 71045; 80048; 80053; 80076; 80143; 80179; 80307; 81001; 82077; 82805; 83605; 83735; 83880; 84100; 85025; 85027; 85610; 85730; 87040; 87077; 87086; 87088; 87186; 92610; 93005; 94640; 94660; 94760; 97116; 97161; 97530; 99291; 99292; J0132; J0612; J0696; J2405; J2543; J2919; J3475; J3480; J3535; J7030; J7060; J7512; J7605; J7613; J7644; J7799

== ENCOUNTER 2025-06-10 12:02 | Emergency (ER) | payer OTHER ==
[2025-06-10 12:51] LABS: Absolute Lymphocytes (CBC) 1.0 K/uL (0.7-4.9); Hematocrit 35.1 % (36.0-45.0); Hemoglobin 11.4 g/dL (12.0-15.0); MCH 26.3 pg (27.0-35.0); MCHC 32.6 g/dL (32.0-36.0); MCV 80.7 fL (80-100); MPV 7.8 fL (7.6-11.3); Nucleated RBC Absolute Count 0.0 (0-0); Nucleated Red Blood Cells % 0.0 % (0-0); RBC Red Blood Cell Count 4.35 M/uL (3.86-4.86); White Blood Count 6.20 thou/uL (4.3-10.9)
[2025-06-10 12:58] LABS: PT Prothrombin Time 15.5 SECONDS (10-13.0); Protime INR 1.38
--- NOTE | 2025-06-10 13:11 | RAD REPORT ---
EXAM: CT brain without contrast HISTORY: Right arm weakness COMPARISON: April 2025 TECHNIQUE: Multiple contiguous axial images were obtained and a CT of the brain without contrast.. Sagittal and coronal reconstruction performed. Automated exposure control, adjustment of the mA and/or kV according to patient size, and/or iterative reconstruction. Unless otherwise specified, incidental f indings do not require dedicated imaging follow-up FINDINGS: An intracranial bleed is not seen Ventricles are normal caliber No extra-axial fluid collection noted 3 cm low-density area left parietal lobe has become more well-defined since the prior exam compatible with subacute infarction. No fluid within the visualized sinuses or mastoids noted. IMPRESSION: 3 cm subacute infarction left parietal lobe
[2025-06-10 13:15] LABS: Anion Gap 10.9 mEq/L (5.0-15.0); BUN Blood Urea Nitrogen 27.0 mg/dL (7-18); Glucose Level 95.0 mg/dL (74-106); Magnesium 1.8 mg/dL (1.6-2.4); NT PRO-BNP 83.0 pg/mL (<125); Potassium 3.9 mEq/L (3.5-5.1); Troponin High Sensitivity 5.8 pg/mL (<58.9)
--- NOTE | 2025-06-10 13:32 | RAD REPORT ---
EXAMINATION: CTA HEAD CLINICAL INDICATION: Right-sided weakness TECHNIQUE: Axial CT images were obtained through the head after 100 cc Isovue-370 intravenous contras t utilizing angiographic protocol with 3D post-processing (maximum intensity projection images, volume rendered images and/or shaded surface rendered images). One or more of the following dose red uction techniques were used: Automated exposure control, adjustment of the mA and/or kV according to patient size, and/or iterative reconstruction. Unless otherwise specified, incidental findings do not require dedicated imaging follow-up. COMPARISON: April 2025 FINDINGS: Diminished flow is present within peripheral branches of the posterior left middle cerebral artery wi thout significant change from prior exam. The remainder of the distal internal carotid, basilar, anterior cerebral, middle cerebral and posteri or cerebral arteries do not demonstrate a significant stenosis origin right posterior cerebral artery An aneurysm not noted. No large vessel occlusion IMPRESSION: Diminished flow within peripheral branches of the posterior left middle cerebral artery without signi ficant change from prior exam.
--- NOTE | 2025-06-10 13:33 | RAD REPORT ---
EXAMINATION: Neck Angio CLINICAL INDICATION: Right-sided weakness TECHNIQUE: Axial CT images were obtained from the aortic arch to the skull base after intravenous adm inistration of 100 cc Isovue-370 utilizing angiographic protocol. Multiplanar reformats, as well as 3D post-processing (maximum intensity projection images, volume rendered images and/or shaded surface rendered images) were generated and reviewed. One or more of the following dose reduction techniques were used: Automated exposure control, adjustment of the mA and/or kV according to patient size, and/or iterative reconstruction. Unless otherwise specified, incidental findings do not require dedicated imaging follow-up. COMPARISON: No prior exam. FINDINGS: The visualized aortic arch and great vessels do not demonstrate a significant abnormality Severe calcified plaque right carotid bulb/proximal right internal carotid artery. A stent has been placed into the distal left common carotid/proximal left internal carotid artery sin ce the prior exam. The stent is patent. The lumen of the stent is narrowed within the proximal left internal carotid artery. Mild plaque remainder common carotid, internal and external carotid arteries. Vertebral arteries unremarkable. No dissection seen Methods for NASCET criteria: Mild stenosis, 0% to 49%; Moderate stenosis 50% to 69%; Severe stenosis, 70% to 99% IMPRESSION: Severe calcified plaque right internal carotid artery results in an approximately 75-80% stenosis Placement of a left carotid stent since the prior exam. The stent is patent. However it is narrowed a pproximately 90% within the proximal left internal carotid artery
--- NOTE | 2025-06-10 13:40 | RAD REPORT ---
Procedure: Chest Single View HISTORY: Right-sided weakness/numbness COMPARISON: April 2025 FINDINGS: Mild bilateral interstitial lung opacities. No significant pleural effusion noted. The heart is mildly enlarged. IMPRESSION: Mild bilateral interstitial lung opacities may indicate mild interstitial pulmonary edema
[2025-06-10] MEDS ORDERED: LEVALBUTEROL 1.25 MG/3 ML NEB ONE (14:13)
[2025-06-10] MEDS ORDERED: IPRATROPIUM BROM 0.5MG/2.5ML ONE (14:13)
[2025-06-10] MEDS ORDERED: FUROSEMIDE 20 MG/ 2ML VIAL ONE (14:13)
--- NOTE | 2025-06-10 15:21 | EDPHYS ---
Physician Documentation [facility] Name: Ivet May Age: 69 yrs Sex: Female : 1955 Arrival Date: 06/10/2025 Time: 12:02 Bed 7 Private MD: ED Physician Kristian Caro HPI: 06/10 13:35 This 69 yrs old Female presents to ER via Wheelchair with complaints of Numbness Of rn Arm, Tightness in arm. 13:35 Patient reports had stroke 1 month ago, had right-sided weakness and still has residual rn right-sided weakness. States had left carotid stent placed after stroke. Compliant with medication. Patient reports for the last week he has noticed tightness in the right arm and subjectively decreased strength. Patient states symptoms never improved since stroke but feels a little different over the last week. Mild headache. No neck pain or stiffness. Has appointment with neurology this next but family urged her to come in today. Denies any chest pain. States breathing is at baseline for her, has COPD and has quit smoking.. Historical: - Allergies: 12:34 Aspirin; kn 12:34 Ibuprofen; kn - Home Meds: 12:34 alprazolam 0.5 mg Oral tab 1 tab 3 times per day for Anxiety [Active]; amlodipine 5 mg kn tablet 1 tab daily [Active]; atorvastatin 20 mg/5 mL (4 mg/mL) oral suspension [Active]; fenofibrate 160 mg Oral tablet 1 tab daily [Active]; lisinopril 10 mg Oral tab 1 tab once daily for Hypertension [Active]; Symbicort- Budesonide 160 MCG/Formoterol Fumarate dihydrate 4.5 Mcg as needed [Active]; venlafaxine 50 mg Oral tablet 1 tab daily [Active]; Ventolin Rotahaler/Rotacaps 90mcg/puff Inhl 200 mcg as needed [Active]; - PMHx: 12:34 COPD; Hypertension; stroke (Hypertension); kn - PSHx: 12:34 Stented artery; kn - Immunization history:: Adult Immunizations unknown. - Infectious Disease History:: Denies. - Social history:: Smoking status: Patient/guardian denies using tobacco. - Family history:: not pertinent. - Hospitalizations: : Patient was recently seen at. ROS: 13:35 Constitutional: Negative for fever, chills, and weight loss, Neck: Negative for injury, rn pain, and swelling, Cardiovascular: Negative for chest pain, palpitations, and edema, Respiratory: Negative for shortness of breath, cough, wheezing, and pleuritic chest pain, Abdomen/GI: Negative for abdominal pain, nausea, vomiting, diarrhea, and constipation, Back: Negative for injury and pain, MS/Extremity: Negative for injury and deformity, Skin: Negative for injury, rash, and discoloration, Neuro: Positive for right-sided weakness and numbness Exam: 13:35 Constitutional: This is a well developed, well nourished patient who is awake, alert, rn and in no acute distress. Cardiovascular: Regular rate and rhythm. No pulse deficits. Respiratory: Mild tachypnea noted. MS/ Extremity: Pulses equal, no cyanosis. Neurovascular intact. Full, normal range of motion. Equal circumference. Neuro: Awake and alert, GCS 15, oriented to person, place, time, and situation. Cranial nerves II-XII grossly intact. Motor strength 5/5 in all extremities. Sensory grossly intact. Cerebellar exam normal. No drift noted. 14:47 ECG was reviewed by the Attending Physician. rn Vital Signs: 12:28 BP 154 / 86; Pulse 84; Resp 22; Temp 97.6; Pulse Ox 97% ; Weight 97.52 kg; Height 5 ft. kn 6 in. ; Pain 0/10; 13:06 BP 140 / 80; Pulse 74; Resp 22; Pulse Ox 94% ; kn 13:30 BP 151 / 78; Pulse 73; Resp 19; Pulse Ox 96% ; kn 15:00 BP 127 / 82; Pulse 77; Resp 19; Pulse Ox 99% ; kn 12:28 Body Mass Index 34.70 (97.52 kg, 167.64 cm) kn 12:28 Pain Scale: Adult kn NIH Stroke Scale Scores: 12:40 NIHSS Score: 1 kn MDM: 12:14 Medical Screening Exam initiated rn 14:00 Independent interpretation of the following test(s) in the Emergency Department CT rn Scan: My interpretation is CT head images negative for acute hemorrhage per my interpretation.. ED course: CT head and CT angiogram negative for acute changes. Shows likely evolving and healing infarction. Angiogram showed patent stent although stenotic on proximal side. No indication for emergent intervention or changes regarding her evolving stroke and subacute stroke. X-ray of lungs shows mild pulmonary edema. BNP is normal and patient reports cardiac workup for stroke last month was negative. Has never been diagnosed with congestive heart failure. X-ray findings could indicate more scarring from COPD. Will try a little Lasix and inhalers and reassess her breathing. Patient does not feel like she is breathing any worse than her baseline at this time. Most likely anticipate discharge home and she can follow-up with her neurologist and continue her current medication regimen as she has an appointment in 4 days.. 15:19 Differential diagnosis: Anemia Anxiety Reaction Chronic Obstructive Pulmonary Disease rn Myocardial Infarction Pneumothorax pulmonary edema. Data reviewed: vital signs, nurses notes, lab test result(s), EKG, radiologic studies, CT scan, plain films, and as a result, I will discharge patient. Consideration of Admission/Observation Escalation of care including admission/observation considered. Care significantly affected by the following chronic conditions: Hypertension, Chronic Obstructive Pulmonary Disease. Counseling: I had a detailed discussion with the patient and/or guardian regarding the historical points, exam findings, and any diagnostic results supporting the discharge/admit diagnosis, lab results, radiology results, the need for outpatient follow up, to return to the emergency department if symptoms worsen or persist or if there are any questions or concerns that arise at home. Response to treatment: the patient's symptoms have markedly improved after treatment, and as a result, I will discharge patient. Special discussion: I discussed with the patient/guardian in detail that at this point there is no indication for admission to the hospital. It is understood, however, that if the symptoms persist or worsen the patient needs to return immediately for re-evaluation. 06/10 12: Order name: Basic Metabolic Panel; Complete Time: 13: 06/10 12:33 Order name: CBC with Diff; Complete Time: 13: 06/10 12:33 Order name: NT PRO-BNP; Complete Time: 13: 06/10 12:33 Order name: PT-INR; Complete Time: : 06/10 12:33 Order name: Troponin HS; Complete Time: : 06/10 12:33 Order name: Magnesium; Complete Time: 13: 06/10 12:33 Order name: XRAY Chest (1 view); Complete Time: 13: 06/10 12:33 Order name: CT Head Brain wo Cont; Complete Time: 13:20 rn 06/10 12:33 Order name: Neck Angio CT; Complete Time: 13:41 rn 06/10 12:33 Order name: Head Angio CT; Complete Time: 13:41 rn 06/10 12:33 Order name: EKG; Complete Time: 12:33 rn 06/10 12:33 Order name: Cardiac monitoring; Complete Time: 13:20 rn 06/10 12:33 Order name: EKG - Nurse/Tech; Complete Time: 13:20 rn 06/10 12:33 Order name: IV Saline Lock; Complete Time: 13:20 rn 06/10 12:33 Order name: Labs collected and sent; Complete Time: 13: rn 06/10 12:33 Order name: O2 Per Protocol; Complete Time: 13: rn 06/10 12:33 Order name: O2 Sat Monitoring; Complete Time: 13:20 rn EC:47 Rate is 77 beats/min. Rhythm is regular. Left axis deviation noted. QRS is positive in rn lead I and negative in lead aVF. QRS interval is prolonged at 138 msec. No Q waves. T waves are Normal. No ST changes noted. Clinical impression: NSR w/ Non-specific ST/T Changes. Interpreted by me. Reviewed by me. Administered Medications: 14:20 Drug: Levalbuterol Inhalation 1.25 mg Inhalation once Route: Inhalation; nh2 15:07 Follow up: Response: No adverse reaction 14:20 Drug: Furosemide IVP 20 mg IVP once; give over 2 minutes Route: IVP; Site: left nh2 antecubital; 15:07 Follow up: Response: No adverse reaction 14:20 Drug: Ipratropium Inhalation Aerosol 0.5 mg Inhalation once Route: Inhalation; nh2 15:06 Follow up: Response: No adverse reaction Disposition Summary: 06/10/25 15:21 Discharge Ordered Notes: Location: Home rn Problem: new rn Symptoms: have improved rn Condition: Stable rn Diagnosis - Weakness rn - Cerebral infarction, unspecified - Subacute rn - COPD/ Chronic obstructive pulmonary disease, unspecified rn Followup: rn - With: Private Physician - When: As needed - Reason: Recheck today's complaints, Re-evaluation by your physician Discharge Instructions: - Discharge Summary Sheet rn - Chronic Obstructive Pulmonary Disease rn - Ischemic Stroke rn - Weakness rn Forms: - Medication Reconciliation Form rn - Antibiotic popcorn attendant - Prescription Opioid Use rn - Patient Portal Instructions rn - Leadership Thank You Letter rn NIH Stroke Scale - NIH Stroke Score Date: 06/10/2025 Time: 12:40 Total Score = 1 10. Dysarthria (speech clarity - read or repeat words) - 0(Normal) 11. Extinction and Inattention (visual/tactile/auditory/spatial/personal) - 0(No abnormality) 1a. Level of Consciousness (LOC) - 0(Alert) 1b. Level of Consciousness (LOC) (Month \T\ Age) - 0(Both) 1c. LOC Commands (Open \T\ Closes Eyes/Wire Tinner) - 0(Both) 2. Best Gaze (Lateral Gaze Paresis) - 0(Normal) 3. Visual Field Loss - 0(No visual loss) 4. Facial Palsy - 0(Normal) 5a. Left Arm: Motor (10-second hold) - 0(No drift) 5b. Right Arm: Motor (10-second hold) - 0(No drift) 6a. Left Leg: Motor (5-second hold - always test supine) - 0(No drift) 6b. Right Leg: Motor (5-second hold - always test supine) - 0(No drift) 7. Limb Ataxia (finger/nose \T\ heel/landeros - test with eyes open) - 1(Present in one limb) 8. Sensory Loss (pinprick arms/legs/face) - 0(Normal) 9. Best Language: Aphasia (description/naming/reading) - 0(No aphasia) Initials: kn Signatures: Dispatcher [employer] EDMS Kristian Caro MD MD rn NICOLOSI, KARLENE, RN RN kn Hernandez Jr, Noel, RN RN nh2 Corrections: (The following items were deleted from the chart) 12:33 12:33 Head Angio+CT.RAD.BRZ ordered. EDMS EDMS
--- NOTE | 2025-06-10 15:21 | ER ---
Nurse's Notes [facility] Name: Ivet May Age: 69 yrs Sex: Female : 1955 Arrival Date: 06/10/2025 Time: 12:02 Bed 7 Private MD: Diagnosis: Weakness;Cerebral infarction, unspecified-Subacute;COPD/ Chronic obstructive pulmonary disease, unspecified Presentation: 06/10 12:28 Chief complaint: Patient states: pt wc to room, c/c R arm weakness/tightness x 1 week. kn PMHX of recent stroke with R sided weakness (May 09, 2025). pt is AAOx4, Pupils: 3mm PEARRL, no nystagmus noted, no slurred speech/facial droop noted, resp is slightly labored with minimal exertion. placed on monitor car operator, bp cuff, and pulse ox, vss, will continue to monitor pt. MD at bedside. Coronavirus screen: At this time, the client does not indicate any symptoms associated with coronavirus-19. Ebola Screen: No symptoms or risks identified at this time. Initial Sepsis Screen: Does the patient meet any 2 criteria? No. Patient's initial sepsis screen is negative. Does the patient have a suspected source of infection? No. Patient's initial sepsis screen is negative. Risk Assessment: Do you want to hurt yourself or someone else? Patient reports no desire to harm self or others. Onset of symptoms was June 03, 2025. 12:28 Method Of Arrival: Wheelchair kn 12:28 Acuity: PETE 2 kn Triage Assessment: 12:34 General: Appears uncomfortable, Behavior is cooperative, appropriate for age. Pain: kn Denies pain. Neuro: No deficits noted. Braxton Agitation-Sedation Scale (RASS): 0 - Alert and Calm. Cardiovascular: No deficits noted. Respiratory: Reports labored breathing Onset: The symptoms/episode began/occurred at an unknown time. the patient has moderate shortness of breath. Historical: - Allergies: 12:34 Aspirin; kn 12:34 Ibuprofen; kn - Home Meds: 12:34 alprazolam 0.5 mg Oral tab 1 tab 3 times per day for Anxiety [Active]; amlodipine 5 mg kn tablet 1 tab daily [Active]; atorvastatin 20 mg/5 mL (4 mg/mL) oral suspension [Active]; fenofibrate 160 mg Oral tablet 1 tab daily [Active]; lisinopril 10 mg Oral tab 1 tab once daily for Hypertension [Active]; Symbicort- Budesonide 160 MCG/Formoterol Fumarate dihydrate 4.5 Mcg as needed [Active]; venlafaxine 50 mg Oral tablet 1 tab daily [Active]; Ventolin Rotahaler/Rotacaps 90mcg/puff Inhl 200 mcg as needed [Active]; - PMHx: 12:34 COPD; Hypertension; stroke (Hypertension); kn - PSHx: 12:34 Stented artery; kn - Immunization history:: Adult Immunizations unknown. - Infectious Disease History:: Denies. - Social history:: Smoking status: Patient/guardian denies using tobacco. - Family history:: not pertinent. - Hospitalizations: : Patient was recently seen at. Screenin:50 [facility] ED Fall Risk Assessment (Adult) History of falling in the last 3 months, kn including since admission No falls in past 3 months (0 pts) Confusion or Disorientation No (0 pts) Intoxicated or Sedated No (0 pts) Impaired Gait Yes (1 pt) Mobility Assist Device Used Yes (1 pt) Altered Elimination Yes (1 pt) Score/Fall Risk Level 3 or more points = High Risk Oriented to surroundings, Maintained a safe environment, Educated pt \T\ family on fall prevention, incl call for assistance when getting out of bed, Hourly rounding (assess needs \T\ fall precautionary measures) done, Used ambulatory aids as needed (educated on \T\ assisted with), Offered frequent toileting (1:1 observation), Remained with patient while ambulating, Utilized family, sitter, or virtual degree clerk as indicated. Abuse screen: Denies threats or abuse. Denies injuries from another. Nutritional screening: No deficits noted. Tuberculosis screening: No symptoms or risk factors identified. 13:44 [place] Swallow Protocol Exclusion Criteria: Exclusion Criteria Result: Proceed Brief Cognitive Screen What is your name? Normal, Where are you right now? Normal, What year is it? Normal. Oral Mechanism Examination Facial Symmetry: Normal, Motion: Normal, Lip Closure: Normal, Oral Mechanism Result: Normal. 3 oz Water Swallow Challenge: Pt able to drink all water without stopping, coughing, choking or throat clearing: Yes Result: PASS. Assessment: 12:52 Neuro: Braxton Agitation-Sedation Scale (RASS): 0 - Alert and Calm Reports weakness in kn right arm since 1 week. Cardiovascular: No deficits noted. Rhythm is sinus rhythm. Respiratory: Airway is patent Respiratory effort is labored with minimal exertion, pt is currently in no distress. Vital Signs: 12:28 BP 154 / 86; Pulse 84; Resp 22; Temp 97.6; Pulse Ox 97% ; Weight 97.52 kg; Height 5 ft. kn 6 in. ; Pain 0/10; 13:06 BP 140 / 80; Pulse 74; Resp 22; Pulse Ox 94% ; kn 13:30 BP 151 / 78; Pulse 73; Resp 19; Pulse Ox 96% ; kn 15:00 BP 127 / 82; Pulse 77; Resp 19; Pulse Ox 99% ; kn 12:28 Body Mass Index 34.70 (97.52 kg, 167.64 cm) kn 12:28 Pain Scale: Adult NIH Stroke Scale Scores: 12:40 NIHSS Score: 1 kn ED Course: 12:07 Patient arrived in ED. ts1 12:14 Kristian Caro MD is Attending Physician. rn 12:20 DARCIE WHITE RN is Primary Nurse. kn 12:34 Triage completed. kn 12:34 Arm band placed on right wrist. EKG completed in triage. Results shown to MD. kn 12:40 No provider procedures requiring assistance completed. Inserted saline lock: 20 gauge kn in left antecubital area, using aseptic technique. Blood collected. Flushed with 10 mL NS. 12:50 Patient has correct armband on for positive identification. Bed in low position. Call kn light in reach. Side rails up X2. Adult w/ patient. Provided Education on: use of call light, plan of care, pt verbalizes understanding. . 13:03 CT Head Brain wo Cont In Process Unspecified. EDMS 13:[address] In Process Unspecified. EDMS 13:[address] In Process Unspecified. EDMS 13:36 XRAY Chest (1 view) In Process Unspecified. EDMS 15:12 IV discontinued, intact, bleeding controlled, No redness/swelling at site. Pressure kn dressing applied. Administered Medications: 14:20 Drug: Levalbuterol Inhalation 1.25 mg Inhalation once Route: Inhalation; nh2 15:07 Follow up: Response: No adverse reaction 14:20 Drug: Furosemide IVP 20 mg IVP once; give over 2 minutes Route: IVP; Site: left nh2 antecubital; 15:07 Follow up: Response: No adverse reaction 14:20 Drug: Ipratropium Inhalation Aerosol 0.5 mg Inhalation once Route: Inhalation; nh2 15:06 Follow up: Response: No adverse reaction nevaeh Medication: 12:50 VIS not applicable for this client. Outcome: 15:12 Discharged to home via wheelchair, with family, kn 15:12 Condition: stable 15:12 Discharge instructions given to patient, 15:21 Discharge ordered by . rn 15:31 Patient left the ED. NIH Stroke Scale - NIH Stroke Score Date: 06/10/2025 Time: 12:40 Total Score = 1 10. Dysarthria (speech clarity - read or repeat words) - 0(Normal) 11. Extinction and Inattention (visual/tactile/auditory/spatial/personal) - 0(No abnormality) 1a. Level of Consciousness (LOC) - 0(Alert) 1b. Level of Consciousness (LOC) (Month \T\ Age) - 0(Both) 1c. LOC Commands (Open \T\ Closes Eyes/Section Leader Screen Printing) - 0(Both) 2. Best Gaze (Lateral Gaze Paresis) - 0(Normal) 3. Visual Field Loss - 0(No visual loss) 4. Facial Palsy - 0(Normal) 5a. Left Arm: Motor (10-second hold) - 0(No drift) 5b. Right Arm: Motor (10-second hold) - 0(No drift) 6a. Left Leg: Motor (5-second hold - always test supine) - 0(No drift) 6b. Right Leg: Motor (5-second hold - always test supine) - 0(No drift) 7. Limb Ataxia (finger/nose \T\ heel/landeros - test with eyes open) - 1(Present in one limb) 8. Sensory Loss (pinprick arms/legs/face) - 0(Normal) 9. Best Language: Aphasia (description/naming/reading) - 0(No aphasia) Initials: nevaeh Signatures: Dispatcher [employer] Kristian Pollack MD MD rn Simpson, Tanya, PAS PAS ts1 DARCIE WHITE RN RN kn Ariel Nuno, Mati RN SANDIE nh2
[2025-06-10 16:10] VITALS: TEMP 97.6
[2025-06-10 16:25] VITALS: BP 127/82; O2SAT 99
== END 2025-06-10 15:31 | disposition home or self-care (01) ==
LOC: ER 12:02
DX: I63.9 Cerebral infarction, unspecified (principal); J44.9 Chronic obstructive pulmonary disease, unspecified; R29.701 NIHSS score 1; I10 Essential (primary) hypertension; Z95.818 Presence of other cardiac implants and grafts
CPT/HCPCS: 93005; 85025; 80048; 36415; 83735; 85610; 82565; 84484; 83880; 70450; 70496; 70498; 71045; 96374; 99285; Q9967; J1938; J7614; J7644